=== PATIENT | female | born 1960 | race Caucasian/White ===

== ENCOUNTER 2020-04-30 17:48 | Inpatient (IN) | payer OTHER, SELFPAY ==
[2020-04-30] VITALS (15 sets, daily range): BP systolic 104–125; BP diastolic 43–66; PULSE 67–95; RESP 12–20; TEMP 36.8; O2SAT 97–100; BMI 27.6
--- NOTE | ~2020-04-30 | US_ITS ---
EXAMINATION: US venous doppler [facility] DATE: 05/01/2020 13:45 INDICATION: Left lower limb swelling. Pulmonary embolism. TECHNIQUE: Grayscale ultrasound images without and with compression and Doppler ultrasound images of the bilateral lower extremity veins were obtained. COMPARISON: None. FINDINGS: There is eccentric nonocclusive thrombus in the partially compressible right gastrocnemius vein. The visualized portions of right common femoral vein, profunda (deep) femoral vein, femoral vein, poplite al vein, posterior tibial veins and peroneal veins are patent. Patient is reportedly status post righ t greater saphenous vein ablation. Extensive occlusive appearing noncompressible thrombus throughout the visualized portions of left com mon femoral vein, profunda femoral vein, femoral vein, popliteal vein, posterior tibial veins, perone al veins, gastrocnemius vein, soleus vein, lesser saphenous vein and greater saphenous vein outflow. IMPRESSION: 1. Extensive deep venous thrombosis throughout all of the visualized veins of the left lower limb. T his was discussed with the patient's nurse. The patient is already being anticoagulated for the pulmo nary emboli. 2. Small amount of nonocclusive deep venous thrombosis within the right gastrocnemius vein. Reviewed, dictated and finalized at location [facility]. ULAR SAW FILER IMPRESSION: 1. Extensive deep venous thrombosis throughout all of the visualized veins of the left lower limb. This was discussed with the patient's nurse. The patient i s already being anticoagulated for the pulmonary emboli. 2. Small amount of nonocclusive deep venous thrombosis within the right gastroc nemius vein.
--- NOTE | ~2020-04-30 | CT_ITS ---
EXAMINATION: CTA chest PE protocol DATE: 04/30/2020 20:20 INDICATION: Shortness of breath. Recurrent deep venous thrombosis. TECHNIQUE: Computed tomography angiography (CTA) of the chest was performed with 100 mL Omnipaque-350 intravenous contrast timed to evaluate the pulmonary arteries. Coronal maximum intensity projection 3D-reconstructions were created by the technologist. Automated exposure control and iterative reconst ruction technique were employed. Exam dose: 223.03 mGy-cm total exam DLP. COMPARISON: None. FINDINGS: There is diagnostic contrast enhancement of the pulmonary arteries. Small emboli are identi fied in several right lower lobe pulmonary arteries at lower lobe anterior and posterior segments. No pulmonary Noted otherwise. No thoracic aortic aneurysm or dissection. Normal heart size. Trace pericardial fluid. No pleural effusion. No hilar or mediastinal mass lesion or lymphadenopathy. There are patchy bilateral infiltrates scattered throughout both lungs including upper lobes, middle lobe and to a greater extent lower lobes. IMPRESSION: Mild pulmonary embolism, right lower lobe, involving anterior and posterior segments Scattered patchy infiltrates throughout the upper lobes, middle lobe and particularly lower lobes Reviewed, dictated and finalized at [facility]. Reviewed, dictated and finalized at location [facility]. PROCESS DEPLOYMENT CONSULTANT IMPRESSION: Mild pulmonary embolism, right lower lobe, involving anterior and posterior segments Scattered patchy infiltrates throughout the upper lobes, middle lobe and partic ularly lower lobes
--- NOTE | ~2020-04-30 | CT_ITS ---
EXAMINATION: CT brain wo con DATE: 05/01/2020 18:20 INDICATION: New dizziness TECHNIQUE: Computed tomography (CT) of the head was performed without intravenous contrast. The mA wa s adjusted according to patient size. Iterative reconstruction technique was employed. Exam dose: 60 5.33 mGy-cm total exam DLP. COMPARISON: None FINDINGS: No intracranial mass lesion or hemorrhage or cerebrovascular accident. No midline shift or mass effect effect. There is preferential bilateral frontal cortical atrophy. There is nonspecific di minished attenuation cerebral white matter, likely due to chronic small vessel ischemic changes. Bila teral carotid siphon internal carotid artery calcifications are noted. No intracranial mass lesion or hemorrhage or cerebrovascular accident is evident. No subdural or epidural hematoma. No orbital mass lesion. Included mastoid air cells and paranasal sinuses are unremarkable. No fracture or bone destruction of the cranial vault. IMPRESSION: Cerebral atherosclerosis No acute intracranial finding Reviewed, dictated and finalized at [facility]. Reviewed, dictated and finalized at location [facility]. BUILDER AND ERECTOR
[2020-04-30 19:26] LABS: D Dimer 19.87 ug/mL (<0.48)
--- NOTE | 2020-04-30 19:30 | PC.NURSE ---
pt ambulated to bathroom and back. pt sob on return to room and pt's left leg purple in color. pt states that she has been getting sob with exertion and that after a few minutes she recovers and is feels fine again and that has been happening since she started noticing her leg swelling.
--- NOTE | 2020-04-30 19:48 | ECG_ITS ---
Measurements Intervals [place] Rate: 75 P: 0 CT: 131 QRS: 33 QRSD: 94 T: 62 QT: 366 QTc: 409 Interpretive Statements SINUS RHYTHM NORMAL ECG Electronically Signed On 05-01-2020 6:51:42 NIGHTCLUB MANAGER by Ricky Park D.O.
--- NOTE | 2020-04-30 19:50 | ED.LOWEXIN ---
HPI - Extremity Injury (Lower) General Chief Complaint: Extremity Injury, Lower Stated Complaint: Left leg Swelling, Pelvic Pain Time Seen by Provider: 04/30/20 18:06 Source: patient and family Mode of arrival: ambulatory Limitations: no limitations History of Present Illness HPI Narrative: 60-year-old female Recently had a Covid infection and reported she was just cleared by the health department Yesterday she had a sudden onset of left hip/inguinal pain like her pelvis exploded She reported to the ED at [facility] yesterday where they did a pretty extensive evaluation quite naturally centered around her pelvis and hip which was essentially completely unremarkable However today her entire left leg is swollen and painful so she came over here to get it checked out further She does have some shortness of breath but is not a lot worse than it has been with the recent Covid infection No fever No numbness or weakness Related Data Home Medications Medication Instructions Recorded Confirmed amlodipine 5 mg PO DAILY 04/30/20 04/30/20 bupropion HCl 300 mg PO DAILY 04/30/20 04/30/20 estradiol 1 mg PO DAILY 04/30/20 04/30/20 Allergies Allergy/AdvReac Type Severity Reaction Status Date / Time Sulfa (Sulfonamide Allergy Unknown Unknown Verified 04/30/20 18:04 Antibiotics) Review of Systems Review of Systems: All systems reviewed & are unremarkable except as noted in HPI and below Constitutional: Constitutional: Denies chills, Reports fatigue, Denies fever(s), Denies headache(s) and Denies weakness Eyes: Eyes: Reports no additional eye complaints and Denies change in vision ENT: Denies headache(s), Denies epistaxis, Denies nasal congestion and Denies sore throat Cardiovascular: Cardiovascular: Denies chest pain, Denies leg edema, Denies palpitations and Denies dyspnea Respiratory: Respiratory: Reports cough, Reports dyspnea and Denies wheezing Gastrointestinal: Gastrointestinal: Denies abdominal pain, Denies diarrhea, Denies nausea and Denies vomiting Genitourinary: Genitourinary: Denies hematuria, Denies urinary frequency and Denies dysuria Musculoskeletal: Musculoskeletal: Reports myalgias, Denies deformity, Reports arthralgias, Reports joint swelling, Denies muscle weakness and Denies numbness Integumentary/Breasts: Skin/Breast: Denies rash and Denies wounds Neurologic: Denies headache(s), Denies focal weakness, Denies numbness and Denies weakness Psychiatric: Psychiatric: Reports no additional psychiatric complaints Endocrine: Endocrine: Denies fatigue and Denies palpitations Hematologic/Lymphatic: Hematologic/Lymphatic: Denies easy bleeding and Denies easy bruising Allergic/Immunologic: Allergic/Immunologic: Denies wheezing PMFSH Past Medical History Medical History (Updated 04/30/20 @ 22:02 by Andrew Deutsch MD) Depression Essential (primary) hypertension Surgical History Surgical History (Updated 04/30/20 @ 21:55 by Andrew Deutsch MD) History of abdominal hysterectomy Previous section Family History Family History Father Hypertension Family history of cardiovascular disease Mother Family history of malignant neoplasm of cervix Social History Social History (Updated 04/30/20 @ 21:55 by Andrew Deutsch MD) Smoking status: Never smoker Gender identity (if verbalized by the patient): Female Exam Const: General: no acute distress, well developed, alert and awake Nutritional Appearance: well nourished Orientation/consciousness: patient oriented x3 (alert) Limitations: no limitations HENMT: Head: normocephalic and atraumatic Ears: external ears normal General nose exam: No nasal discharge present and no epistaxis Face and sinus: face symmetric Eyes: Conjunctivae: conjunctivae normal Sclera: sclerae normal EOM: EOMs intact bilaterally Neck: Neck: normal visual inspection, supple and no JVD
[2020-04-30 19:57] LABS: Basophils Percent Auto 0.4 % (0.2-1.2); Eosinophils Absolute Auto 0.3 K/mm3 (0-0.3); Eosinophils Percent Auto 3.2 % (0-4.4); Hematocrit 39.6 % (37.0-47.0); Hemoglobin 13.3 g/dL (12.0-15.0); Immature Granulocyte Absolute 0.06 K/mm3 (0.00-0.031); Immature Granulocyte Percent A 0.6 % (0-0.5); Lymphocytes Absolute Auto 1.44 K/mm3 (0.9-3.2); Lymphocytes Percent Auto 15.6 % (18.3-44.2); Mean Corpuscular HGB Conc 33.6 g/dl (32-36); Mean Corpuscular Hemoglobin 29.8 pg (26-34); Mean Corpuscular Volume 88.6 fl (80-100); Mean Platelet Volume 11.8 fl (7.4-10.4); Monocytes Absolute Auto 0.6 K/mm3 (0.1-0.6); Neutrophils Absolute Auto 6.9 K/mm3 (1.3-6.7); Neutrophils Percent Auto 74.2 % (45.5-73.1); Platelet Count Result 277 k/mm3 (150-375); Red Blood Count 4.47 M/mm3 (4.2-5.4); Red Cell Distribution Width 11.8 % (11.5-14.5); White Blood Count 9.2 K/mm3 (4.5-10.0)
[2020-04-30 20:03] LABS: Anion Gap 5 mmol/L (8-16); Blood Urea Nitrogen 23 mg/dL (7-17); Calcium 9.3 mg/dL (8.4-10.2); Carbon Dioxide 29 mmol/L (22-30); Chloride 103 mmol/L (98-107); Estimated CRCL calculation 46 ml/min; Estimated Glomerular Filt Rate 50; Glucose 127 mg/dL (65-105); Potassium 3.9 mmol/L (3.4-5.0); Sodium 137 mmol/L (137-145)
--- NOTE | 2020-04-30 20:05 | PC.NURSE ---
Called lab spoke with janusz to add on trop, bnp, bmp, and cbcd
[2020-04-30] MEDS: ENOXAPARIN 80 MG/0.8 ML SYRINGE SUB-Q (20:11)
[2020-04-30 20:15] LABS: NT Pro B Type Natriuretic Pept 243 PG/ML (5-100); Troponin I < 0.012 ng/mL (0.000-0.034)
--- NOTE | 2020-04-30 21:47 | PM.IMHP ---
H&P: HPI History of Present Illness Date/Time: 04/30/20 21:47 Chief Complaint: Left leg swelling++ Narrative: This is a pleasant 60 year old female with known history of HTN and depression who was diagnosed with COVID-19 approximately 14 days ago and presented to the hospital [facility] with a complaint of having her whole left leg swollen, painful, with difficulty ambulating. She went to [facility] yesterday as she was experiencing left groin and pelvic pain. At that time she was complaining that she felt like her pelvis exploded . She was evaluated and treated with narcotics and muscle relaxants. She was told that she had a pulled muscle and discharged home. Tonight in the ER she underwent CTA Chest for PE protocol which revealed miild pulmonary embolism, right lower lobe, involving anterior and posterior segments. The patient denies any recent fevers, chills, nausea, vomiting, or diarrhea. She continues to have mild shortness of breath with ambulation. She denies any significant coughing, hematemesis, hematuria, or rectal bleeding. She also denies any past history of clots. She has not recently had any surgeries, long distance travel, and is not known to ever have had cancer. The patient is known to be on hormone replacement therapy. She is currently saturating 99% on room air. The patient was treated with therapeutic Lovenox in the ER [facility] and we have been asked to admit her to the hospital for further care. Review of Systems Review of Systems: All systems reviewed & are unremarkable except as noted in HPI and below PMFSH Past Medical History Medical History (Updated 04/30/20 @ 22:08 by Andrew Deutsch MD) Depression Essential (primary) hypertension Surgical History Surgical History (Updated 04/30/20 @ 21:55 by Andrew Deutsch MD) History of abdominal hysterectomy Previous section Family History Family History Father Hypertension Family history of cardiovascular disease Mother Family history of malignant neoplasm of cervix Social History Social History (Updated 04/30/20 @ 21:55 by Andrew Deutsch MD) Smoking status: Never smoker Gender identity (if verbalized by the patient): Female Meds Home Medications and Allergies Home Medications Medication Instructions Recorded Confirmed Type amlodipine 5 mg PO DAILY 04/30/20 04/30/20 History bupropion HCl 300 mg PO DAILY 04/30/20 04/30/20 History estradiol 1 mg PO DAILY 04/30/20 04/30/20 History Allergies Allergy/AdvReac Type Severity Reaction Status Date / Time Sulfa (Sulfonamide Allergy Unknown Unknown Verified 04/30/20 18:04 Antibiotics) Vital Signs Vital Signs - 24 hr 04/30/20 17:58 04/30/20 18:55 04/30/20 19:00 Temperature 36.8 C Pulse Rate 95 70 80 Respiratory Rate 20 20 17 Blood Pressure 104/50 L 104/47 L Pulse Oximetry 100 100 04/30/20 19:01 04/30/20 19:16 04/30/20 19:30 Temperature Pulse Rate 77 91 75 Respiratory Rate 17 17 16 Blood Pressure 105/49 L Pulse Oximetry 100 98 04/30/20 19:45 04/30/20 20:00 04/30/20 20:10 Temperature Pulse Rate 73 77 81 Respiratory Rate 14 14 15 Blood Pressure 111/43 L Pulse Oximetry 99 99 99 Exam Const: General: cooperative, no acute distress, alert and awake Nutritional Appearance: well nourished Orientation/consciousness: patient oriented x3 HENMT: Head: normal to inspection General nose exam: Normal external nose present Face and sinus: normal facial exam Mouth: Yes Normal oral and palatal mucosa present and Yes oropharynx normal Eyes: Pupils: Equal, round and reactive pupils present EOM: EOMs intact bilaterally Neck: Neck: supple and no JVD Thyroid: thyroid normal Lymphatic: lymphadenopathy not noted Resp: Effort & Inspection: normal respiratory effort Auscultation: clear to auscultation bilaterally Cardio: Rate: regular rate Rhythm: regular rhythm Heart soun
--- NOTE | 2020-04-30 23:05 | ADMGEN ---
This patient, Raquel Mccarty, was admitted to [facility] Surg Room 302-01. Patient/family oriented to hospital policies and general routines including ID bracelet, bed and alarms, visiting hours, pain management, procedures, bathroom and other care routines, personal items, smoking policy, room service/diet, and visiting hours. Information on how to activate the Rapid Response Team has been discussed. Patient/Family are encouraged to report perceived risks to care and to ask questions if they do not understand what they are told or what they should do.
[2020-05-01] VITALS (8 sets, daily range): BP systolic 99–115; BP diastolic 43–65; PULSE 67–84; RESP 16–18; TEMP 36.2–36.4; O2SAT 97–100
[2020-05-01 06:08] LABS: Basophils Percent Auto 0.3 % (0.2-1.2); Eosinophils Absolute Auto 0.4 K/mm3 (0-0.3); Eosinophils Percent Auto 4.4 % (0-4.4); Hematocrit 34.1 % (37.0-47.0); Hemoglobin 11.7 g/dL (12.0-15.0); Immature Granulocyte Absolute 0.09 K/mm3 (0.00-0.031); Immature Granulocyte Percent A 0.9 % (0-0.5); Lymphocytes Absolute Auto 1.52 K/mm3 (0.9-3.2); Lymphocytes Percent Auto 15.5 % (18.3-44.2); Mean Corpuscular HGB Conc 34.3 g/dl (32-36); Mean Corpuscular Hemoglobin 29.4 pg (26-34); Mean Corpuscular Volume 85.7 fl (80-100); Mean Platelet Volume 11.4 fl (7.4-10.4); Monocytes Absolute Auto 0.7 K/mm3 (0.1-0.6); Monocytes Percent Auto 7.5 % (2.6-8.5); Neutrophils Percent Auto 71.4 % (45.5-73.1); Platelet Count Result 234 k/mm3 (150-375); Red Blood Count 3.98 M/mm3 (4.2-5.4); Red Cell Distribution Width 11.5 % (11.5-14.5); White Blood Count 9.8 K/mm3 (4.5-10.0)
[2020-05-01 06:47] LABS: Anion Gap 1 mmol/L (8-16); Blood Urea Nitrogen 21 mg/dL (7-17); Calcium 8.6 mg/dL (8.4-10.2); Carbon Dioxide 28 mmol/L (22-30); Chloride 106 mmol/L (98-107); Estimated CRCL calculation 56 ml/min; Estimated Glomerular Filt Rate > 60; Glucose 104 mg/dL (65-105); Potassium 3.6 mmol/L (3.4-5.0); Sodium 135 mmol/L (137-145)
[2020-05-01] MEDS: ENOXAPARIN 80 MG/0.8 ML SYRINGE SUB-Q ×2 (08:21→20:05)
[2020-05-01] MEDS: buPROPion HCL XL (24 HR) 150 MG TABCR 300 MG PO (08:23)
[2020-05-01] MEDS: FAMOTIDINE 20 MG/2 ML VIAL IV PUSH ×2 (08:23→20:06)
--- NOTE | 2020-05-01 11:47 | PM.IMPN ---
Progress Note: A&P Assessment and Plan (1) Pulmonary emboli: Qualifiers: Acute cor pulmonale presence: unspecified Chronicity: acute Pulmonary embolism type: unspecified Qualified Code(s): I26.99 - Other pulmonary embolism without acute cor pulmonale Code(s): I26.99 - Other pulmonary embolism without acute cor pulmonale Status: Acute Assessment and Plan: Mild in the right lower lobe (anterior and posterior segments). Troponin negative and BNP minimally elevated 243. Provoked in the setting of COVID-19 infection and estradiol use with recent immobility since she was not feeling well given COVID infection. She is not requiring supplemental oxygen. Dyspnea has improved. Continue therapeutic SQ lovenox and plan to transition to DOAC tomorrow if she does well overnight tonight Care coordination consult placed to check what will be covered Continue analgesics as needed Stop estradiol indefinitely. I discussed this with the patient today. Venous doppler US ordered and pending (2) Left leg swelling: Code(s): M79.89 - Other specified soft tissue disorders Status: Acute Assessment and Plan: Likely secondary to DVT. Pain is improving. Venous doppler US is ordered and pending No evidence of phlegmasia cerulea dolens. Continue to monitor for any change. Continue analgesics as needed (3) COVID-19: Code(s): U07.1 - COVID-19 Status: Acute Assessment and Plan: Symptoms started 04/13/20. The patient was diagnosed with COVID-19 04/18/31. She is likely no longer contagious. Repeat SARS-CoV-2 testing ordered per ER provider but patient was released from quarantine from the health department. She is not hypoxic. Continue supportive care (4) Essential (primary) hypertension: Code(s): I10 - Essential (primary) hypertension Status: Chronic Assessment and Plan: Blood pressures are acceptable. Most recent BP was 112/43. Continue amlodipine Continue to monitor and adjust treatment as necessary (5) Depression: Qualifiers: Depression Type: unspecified Qualified Code(s): F32.9 - Major depressive disorder, single episode, unspecified Code(s): F32.9 - Major depressive disorder, single episode, unspecified Status: Chronic Assessment and Plan: Mood is stable. Continue bupropion Subjective Date/time seen: 05/01/20 11:47 Mrs. Mccarty is a 60 y.o. female with PMH significant for recent COVID-19 diagnosed 04/15/20, depression, hypertension, and post-menopause previously on estradiol prior to admission who is seen in follow-up for suspected left lower extremity DVT and acute mild pulmonary embolism of the right lower lobe. She is doing better today. She still has LLE pain with ambulating, rated 5/10, but pain has improved overall and no longer having pain resting. She reports no numbness or tingling. She reports dyspnea with exertion but is comfortable at rest. Dyspnea is also improving. She denies hemoptysis. She denies chest pain and pleuritic pain. She denies palpitations. She has no abdominal pain. Bowels are regular. She has no other concerns. Review of Systems Review of Systems: All systems reviewed & are unremarkable except as noted in HPI and below Exam Narrative: Exam Narrative: General: Very pleasant, well-developed, and well-nourished 60 y.o. female lying semi-recumbent in bed in no acute distress. Non-toxic in appearance. HEENMT: Normocephalic and atraumatic. EOMI. Oral mucosa tacky. Neck: Supple. Cardiac: Regular rate and rhythm. S1 and S2 normal. No murmur appreciated. Lungs: Respirations are even and non-labored. Lungs have rales in the bases. No wheezes or rhonchi. Abdomen: Normoactive bowel sounds. Abdomen soft, non-distended, and non-tender. Extremities: Warm and well-perfused. Unilateral LLE with significant generalized swelling which extends up the entire extremity comp
[2020-05-02 06:00] VITALS: BP 101/55; PULSE 69; RESP 16; TEMP 36.1; O2SAT 100
[2020-05-02 06:35] LABS: Hematocrit 30.6 % (37.0-47.0); Hemoglobin 10.2 g/dL (12.0-15.0); Mean Corpuscular HGB Conc 33.3 g/dl (32-36); Mean Corpuscular Hemoglobin 28.9 pg (26-34); Mean Corpuscular Volume 86.7 fl (80-100); Mean Platelet Volume 11.7 fl (7.4-10.4); Platelet Count Result 207 k/mm3 (150-375); Red Blood Count 3.53 M/mm3 (4.2-5.4); Red Cell Distribution Width 11.6 % (11.5-14.5); White Blood Count 7.7 K/mm3 (4.5-10.0)
[2020-05-02 06:44] LABS: Anion Gap 2 mmol/L (8-16); Blood Urea Nitrogen 20 mg/dL (7-17); Calcium 8.5 mg/dL (8.4-10.2); Carbon Dioxide 30 mmol/L (22-30); Chloride 105 mmol/L (98-107); Estimated CRCL calculation 51 ml/min; Estimated Glomerular Filt Rate 56; Glucose 105 mg/dL (65-105); Magnesium 1.9 mg/dL (1.6-2.3); Potassium 3.7 mmol/L (3.4-5.0); Sodium 137 mmol/L (137-145)
[2020-05-02] MEDS: buPROPion HCL XL (24 HR) 150 MG TABCR 300 MG PO (09:17)
[2020-05-02] MEDS: ENOXAPARIN 80 MG/0.8 ML SYRINGE SUB-Q ×2 (09:17→20:40)
[2020-05-02] MEDS: FAMOTIDINE 20 MG/2 ML VIAL IV PUSH (09:18)
--- NOTE | 2020-05-02 13:10 | PM.IMPN ---
Progress Note: A&P Assessment and Plan (1) Pulmonary emboli: Qualifiers: Pulmonary embolism type: unspecified Chronicity: acute Acute cor pulmonale presence: unspecified Qualified Code(s): I26.99 - Other pulmonary embolism without acute cor pulmonale Code(s): I26.99 - Other pulmonary embolism without acute cor pulmonale Status: Acute Assessment and Plan: Mild in the right lower lobe (anterior and posterior segments). Venous doppler demonstrates extensive LLE DVT and gastrocnemius thrombus of RLE. Troponin negative and BNP minimally elevated 243. Provoked in the setting of COVID-19 infection and estradiol use with recent immobility since she was not feeling well given COVID infection. Symptoms are improving. Continue therapeutic SQ lovenox. GI consulted given report of dark stool. Monitor closely. Care coordination consult checked eliquis which was fine with the patient for discharge Continue analgesics as needed Stop estradiol indefinitely (2) Deep venous thrombosis: Code(s): I82.409 - Acute embolism and thrombosis of unspecified deep veins of unspecified lower extremity Status: Acute Assessment and Plan: LLE venous doppler US demonstrated extensive occlusive, thrombus extending from the common femoral distally. She also has nonocclusive thrombus in the right gastrocnemius vein. Swelling and pain continue to improve with anticoagulation. No evidence of phlegmasia cerulea dolens. Continue to monitor for any change. Continue analgesics as needed (3) Dark stools: Code(s): R19.5 - Other fecal abnormalities Status: Acute Assessment and Plan: She reports a large dark, runny, and black bowel movement earlier this AM. This could not be collected for guaiac testing because it was in the toilet. Hb has dropped from 13.3 04/30 to 10.2 05/02. She has no hx of PUD. Last colonoscopy was 10 years ago and unremarkable per pt. Guaiac stool test ordered GI has been consulted given need for therapeutic anticoagulation in the setting of extensive LLE DVT and PE Stop pepcid and start protonix BID Repeat Hb, trend q6 hours (4) COVID-19: Code(s): U07.1 - COVID-19 Status: Acute Assessment and Plan: Symptoms started 04/13/20. The patient was diagnosed with COVID-19 04/18/31. She is likely no longer contagious. Repeat SARS-CoV-2 testing ordered per ER provider but patient was released from quarantine from the health department. She is not hypoxic. Continue supportive care (5) Essential (primary) hypertension: Code(s): I10 - Essential (primary) hypertension Status: Chronic Assessment and Plan: Blood pressures are acceptable. Most recent BP was 101/55. Continue amlodipine Continue to monitor and adjust treatment as necessary (6) Depression: Qualifiers: Depression Type: unspecified Qualified Code(s): F32.9 - Major depressive disorder, single episode, unspecified Code(s): F32.9 - Major depressive disorder, single episode, unspecified Status: Chronic Assessment and Plan: Mood is stable. Continue bupropion Subjective Date/time seen: 05/02/20 13:10 Mrs. Mccarty is a 60 y.o. female with PMH significant for recent COVID-19 diagnosed 04/15/20, depression, hypertension, and post-menopause previously on estradiol prior to admission who is seen in follow-up for extensive left lower extremity DVT and acute mild pulmonary embolism of the right lower lobe. She had a large dark stool this AM. Unfortunately it was not collected because it was in the toilet. She had an episode of lightheadedness last night which she describes as feeling my head was full of fluff and thinks she may have been anxious. She had no associated vision change, speech change, focal weakness, or other concerning symptoms. My collaborating physician was called and recommended STAT CT brain which was unremark
[2020-05-02 13:33] VITALS: BP 102/51
[2020-05-02 13:35] VITALS: BP 110/57
[2020-05-02 13:37] VITALS: BP 97/56
[2020-05-02 14:00] VITALS: BP 102/51; PULSE 69; RESP 16; TEMP 36.8; O2SAT 100
[2020-05-02 14:22] LABS: Hematocrit 32.5 % (37.0-47.0); Hemoglobin 10.8 g/dL (12.0-15.0)
--- NOTE | 2020-05-02 15:51 | WPDGICN ---
Assessment and Plan Assessment and plan (1) Melena: Code(s): K92.1 - Melena Status: Acute Assessment and Plan: will do EGD tomorrow, new onset after started on full dose of blood thinner because new diagnosis of DVT and PE assess if ulcer or any other cause of upper gib (2) GIB (gastrointestinal bleeding): Code(s): K92.2 - Gastrointestinal hemorrhage, unspecified Status: Acute Assessment and Plan: started on ppi now and egd in am (3) Acute blood loss anemia: Code(s): D62 - Acute posthemorrhagic anemia Status: Acute Assessment and Plan: monitor hb (4) Pulmonary emboli: Qualifiers: Pulmonary embolism type: unspecified Chronicity: acute Acute cor pulmonale presence: unspecified Qualified Code(s): I26.99 - Other pulmonary embolism without acute cor pulmonale Code(s): I26.99 - Other pulmonary embolism without acute cor pulmonale Status: Acute Assessment and Plan: on blood thinner most likely associated to recent COVID-19 infection and also history of estrogen use (5) Deep venous thrombosis: Code(s): I82.409 - Acute embolism and thrombosis of unspecified deep veins of unspecified lower extremity Status: Acute (6) COVID-19: Code(s): U07.1 - COVID-19 Status: Acute Assessment and Plan: already recovered GI Consult Note Consult date/time: 05/02/20 15:51 Reason for consult: melena HPI: Raquel Mccarty is a 60 year old female with history of HTN and depression diagnosed with COVID-19 about 3 weeks ago with respiratory symptoms but treated as outpatient and cleared by health department just few days ago. She noted new onset of pain and swelling in left groin and pelvic pain at another hospital and told that she pulled muscle and discharged home. She came to our ER, had a CTA Chest for PE protocol which revealed mild pulmonary embolism, right lower lobe, involving anterior and posterior segments and also doppler showed extensive LLE DVT and gastrocnemius thrombus of RLE, started on lovenox. No previous history of clots. The patient is known to be on hormone replacement therapy. She is currently saturating 99% on room air. I was called because she just had a large dark tarry stool, hb on admission 13 and repeat 10.8, she denies previous gib, abdominal pain, nausea. She had a colonoscopy about 10 years ago. Review of Systems Constitutional: Constitutional: Denies headache(s) and Denies weakness Eyes: Eyes: Denies blurry vision ENT: Reports Normal hearing present, Denies headache(s) and Denies neck pain Cardiovascular: Cardiovascular: Denies chest pain and Denies dyspnea Respiratory: Respiratory: Denies dyspnea Gastrointestinal: Gastrointestinal: Reports no additional gastrointestinal complaints Genitourinary: Genitourinary: Denies dysuria Musculoskeletal: Comments: leg pain Integumentary/Breasts: Skin/Breast: Denies dry skin Neurologic: Reports Normal hearing present, Denies headache(s) and Denies weakness Psychiatric: Psychiatric: Denies anxiety Endocrine: Endocrine: Denies change in body appearance Hematologic/Lymphatic: Hematologic/Lymphatic: Denies easy bleeding Allergic/Immunologic: Allergic/Immunologic: Denies urticaria PMFSH Past Medical History Medical History (Updated 05/02/20 @ 16:18 by Lamont Shah MD) Acute blood loss anemia Depression Essential (primary) hypertension GIB (gastrointestinal bleeding) Melena Surgical History Surgical History (Updated 04/30/20 @ 21:55 by Andrew Deutsch MD) History of abdominal hysterectomy Previous section Family History Family History Father Hypertension Family history of cardiovascular disease Mother Family history of malignant neoplasm of cervix Social History Social History (Updated 04/30/20 @ 21:55 by Andrew Deutsch MD) Smoking status: Never smoker
[2020-05-02] MEDS: PANTOPRAZOLE SODIUM IV 40 MG VIAL IV PUSH (20:40)
[2020-05-02 22:00] VITALS: BP 109/41; PULSE 84; RESP 16; TEMP 36.3; O2SAT 100
[2020-05-03] VITALS (8 sets, daily range): BP systolic 102–135; BP diastolic 46–97; PULSE 71–100; RESP 16–22; TEMP 36–36.9; O2SAT 97–100
--- NOTE | 2020-05-03 | ECHO_ITS ---
Patient Info Name: Raquel Mccarty Age: 60 years : 1960 Gender: Female Ht: 67 in Wt: 175 lbs BSA: 1.95 m2 HR: 75 bpm BP: 119 / 46 mmHg Heart Rhythm: Sinus Rhythm Technical Quality: Good Exam Date: 05/03/2020 2:40 PM Exam Location: [facility] Patient Status: Inpatient Admit Date: 05/03/2020 Staff Ordering Physician: Mira Edouard PA-C Counterintelligence Specialist: Scot Walter RDCS Attending Provider: Mira Edouard PA-C Referring Physician: Javan COPE; Exam Type: CA echo doppler color flow Study Info Indications I26.99 - Other pulmonary embolism without acute cor pulmonale Complete two-dimensional, color flow and Doppler transthoracic echocardiogram is performed. Strain analysis performed. History/Risk Factors Acute pulmonary embolism w/ extensive DVT; GIB, HTN, DM, edema. Summary 1. Complete two-dimensional, color flow and Doppler transthoracic echocardiogram is performed. 2. Left ventricular systolic function is normal, estimated at 65-70%. 3. There is mildly increased left ventricular wall thickness. 4. The left ventricular diastolic function is grade II diastolic dysfunction. 5. Global longitudinal strain is normal at -18 %. 6. There is no aortic valve stenosis. 7. There is mild aortic valve regurgitation. 8. There is mild mitral valve regurgitation. 9. There is trace tricuspid valve regurgitation. 10. No pulmonary hypertension, estimated pulmonary arterial systolic pressure is 24 mmHg. 11. There is small pericardial effusion. Left Ventricle Left ventricular chamber dimension is normal. Left ventricular systolic function is normal, estimated at 65-70%. There is mildly increased left ventricular wall thickness. The left ventricular diastolic function is grade II diastolic dysfunction. Global longitudinal strain is normal at -18 %. Right Ventricle Right ventricular chamber dimension is normal. Right ventricular systolic function is normal. Left Atria Left atrial chamber dimension is normal. Right Atria Right atrial chamber dimension is normal. Aortic Valve The aortic valve is trileaflet. There is no aortic valve stenosis. There is mild aortic valve regurgitation. Pulmonic Valve The pulmonic valve is not well visualized. There is mild pulmonic regurgitation. Mitral Valve The mitral valve has normal leaflets. There is mild mitral valve regurgitation. Tricuspid Valve The tricuspid valve leaflets are normal. There is trace tricuspid valve regurgitation. No pulmonary hypertension, estimated pulmonary arterial systolic pressure is 24 mmHg. Pericardium/Pleural The pericardium appears normal. There is small pericardial effusion. Inferior Vena Cava Normal inferior vena cava with >50% collapse upon inspiration consistent with normal right atrial pressure, 5 mmHg. Aorta The aortic root size at the sinus of Valsalva is normal. There is mild aortic atherosclerosis. Left Ventricular Outflow Tract Name Value Normal LVOT 2D LVOT Diameter 1.9 cm LVOT Doppler LVOT Peak Gradient 5 mmHg LVOT Mean Gradient
[2020-05-03 05:50] LABS: Basophils Percent Auto 0.6 % (0.2-1.2); Eosinophils Absolute Auto 0.3 K/mm3 (0-0.3); Eosinophils Percent Auto 4.5 % (0-4.4); Hematocrit 28.7 % (37.0-47.0); Hemoglobin 9.6 g/dL (12.0-15.0); Immature Granulocyte Absolute 0.05 K/mm3 (0.00-0.031); Immature Granulocyte Percent A 0.7 % (0-0.5); Lymphocytes Absolute Auto 1.51 K/mm3 (0.9-3.2); Lymphocytes Percent Auto 21.1 % (18.3-44.2); Mean Corpuscular HGB Conc 33.4 g/dl (32-36); Mean Corpuscular Hemoglobin 29.8 pg (26-34); Mean Corpuscular Volume 89.1 fl (80-100); Mean Platelet Volume 11.9 fl (7.4-10.4); Monocytes Absolute Auto 0.8 K/mm3 (0.1-0.6); Monocytes Percent Auto 10.8 % (2.6-8.5); Neutrophils Absolute Auto 4.5 K/mm3 (1.3-6.7); Neutrophils Percent Auto 62.3 % (45.5-73.1); Platelet Count Result 207 k/mm3 (150-375); Red Blood Count 3.22 M/mm3 (4.2-5.4); Red Cell Distribution Width 11.9 % (11.5-14.5); White Blood Count 7.1 K/mm3 (4.5-10.0)
[2020-05-03 06:07] LABS: Alanine Aminotransferase 46 U/L (4-35); Alkaline Phosphatase 103 U/L (38-126); Anion Gap 3 mmol/L (8-16); Aspartate Amino Transferase 53 U/L (14-36); Bilirubin,Total 0.3 mg/dL (0.2-1.3); Blood Urea Nitrogen 26 mg/dL (7-17); Calcium 8.3 mg/dL (8.4-10.2); Carbon Dioxide 28 mmol/L (22-30); Chloride 107 mmol/L (98-107); Estimated CRCL calculation 56 ml/min; Estimated Glomerular Filt Rate > 60; Glucose 110 mg/dL (65-105); Magnesium 1.9 mg/dL (1.6-2.3); Potassium 4.1 mmol/L (3.4-5.0); Sodium 138 mmol/L (137-145)
[2020-05-03] MEDS: ENOXAPARIN 80 MG/0.8 ML SYRINGE SUB-Q (09:12)
[2020-05-03] MEDS: buPROPion HCL XL (24 HR) 150 MG TABCR 300 MG PO (09:13)
[2020-05-03] MEDS: PANTOPRAZOLE SODIUM IV 40 MG VIAL IV PUSH ×2 (09:13→20:24)
[2020-05-03] MEDS: LACTATED RINGERS 1,000 ML 150 ML IV CONT (12:08)
--- NOTE | 2020-05-03 12:11 | WPDANESEPPF ---
Anes - Initial Pre Proc Eval Procedure: Operation Date: 05/03/20 14:00 Proposed Procedures p Esophagogastroduodenoscopy - Lamont Shah MD Date/Time: 05/03/20 12:11 Surgeon: Mira Edouard PA-C Pre Op Diagnosis: pulmonary embolism, dvt Patient Data Age: 60 Gender: F Height: 5 ft 7 in Weight: 80 kg Last Vital Signs Temp 97.4 F L 05/03/20 12:04 Pulse 74 05/03/20 12:04 Resp 20 05/03/20 12:04 BP 119/46 L 05/03/20 12:04 Pulse Ox 100 05/03/20 12:04 Allergies Allergy/AdvReac Type Severity Reaction Status Date / Time Sulfa (Sulfonamide Allergy Unknown Hives Verified 05/03/20 12:03 Antibiotics) Home Medications Medication Instructions Recorded Confirmed Type amlodipine 5 mg PO DAILY 04/30/20 04/30/20 History estradiol 1 mg PO DAILY 04/30/20 04/30/20 History bupropion HCl 300 mg PO QAM 05/01/20 05/01/20 History Laboratory Tests 05/02/20 05/03/20 05/03/20 13:59 05:20 05:20 WBC 7.1 K/mm3 K/mm3 (4.5-10.0) RBC 3.22 M/mm3 L M/mm3 (4.2-5.4) Hgb 10.8 g/dL L g/dL 9.6 g/dL L g/dL (12.0-15.0) (12.0-15.0) Hct 32.5 % L % 28.7 % L % (37.0-47.0) (37.0-47.0) MCV 89.1 fl fl (80-100) MCH 29.8 pg pg (26-34) MCHC 33.4 g/dl g/dl (32-36) RDW 11.9 % % (11.5-14.5) Plt Count 207 k/mm3 k/mm3 (150-375) MPV 11.9 fl H fl (7.4-10.4) Immature Gran % (Auto) 0.7 % H % (0-0.5) Neut % (Auto) 62.3 % % (45.5-73.1) Lymph % (Auto) 21.1 % % (18.3-44.2) [place] % (Auto) 10.8 % H % (2.6-8.5) Eos % (Auto) 4.5 % H % (0-4.4) Baso % (Auto) 0.6 % % (0.2-1.2) Lymph # (Auto) 1.51 K/mm3 K/mm3 (0.9-3.2) [place] # (Auto) 0.8 K/mm3 H K/mm3 (0.1-0.6) Eos # (Auto) 0.3 K/mm3 K/mm3 (0-0.3) Baso # (Auto) 0.0 K/mm3 K/mm3 (0.0-0.1) Abs Immat Gran (auto) 0.05 K/mm3 H K/mm3 (0.00-0.031) Absolute Neuts (auto) 4.5 K/mm3 K/mm3 (1.3-6.7) Absolute Nucleated RBC 0.0 K/mm3 K/mm3 (0.0-0.012) Nucleated RBC % 0.0 % % (0.0-0.2) Sodium 138 mmol/L mmol/L (137-145) Potassium 4.1 mmol/L mmol/L (3.4-5.0) Chloride 107 mmol/L mmol/L (98-107) Carbon Dioxide 28 mmol/L mmol/L (22-30) Anion Gap 3 mmol/L L mmol/L (8-16) BUN 26 mg/dL H mg/dL (7-17) Creatinine 0.90 mg/dL mg/dL (0.7-1.0) Estim Creat Clear Calc 56 ml/min ml/min Estimated GFR > 60 (59 - ) Glucose 110 mg/dL H mg/dL (65-105) Calcium 8.3 mg/dL L mg/dL (8.4-10.2) Magnesium 1.9 mg/dL mg/dL (1.6-2.3) Total Bilirubin 0.3 mg/dL mg/dL (0.2-1.3) AST 53 U/L H U/L (14-36) ALT 46 U/L H U/L (4-35) Alkaline Phosphatase 103 U/L U/L (38-126) Total Protein 6.0 g/dL L g/dL (6.3-8.2) Albumin 3.0 g/dL L g/dL (3.5-5.1) Patient hx anesthesia problems: none Family hx anesthesia problems: none PMFSH Past Medical History Medical History (Updated 05/02/20 @ 16:18 by Lamont Shah MD) Acute blood loss anemia Depression Essential (primary) hypertension GIB (gastrointestinal bleeding) Melena Surgical History Surgical History (Updated 04/30/20 @ 21:55 by Andrew Deutsch MD) History of abdominal hysterectomy Previous section Family History Family History Father Hypertension Family history of cardiovascular disease Mother Family history of malignant neoplasm of cervix Social History Social History (Updated 04/30/20 @ 21:55 by Andrew Deutsch MD) Smoking status: Never smoker Alcohol intake: current Drinks per week: 1 Substance use: never Gender identity (if verbalized by the patient): Female Spiritual care concerns: No
--- NOTE | 2020-05-03 13:08 | PM.IMPN ---
Progress Note: A&P Assessment and Plan (1) Pulmonary emboli: Qualifiers: Pulmonary embolism type: unspecified Chronicity: acute Acute cor pulmonale presence: unspecified Qualified Code(s): I26.99 - Other pulmonary embolism without acute cor pulmonale Code(s): I26.99 - Other pulmonary embolism without acute cor pulmonale Status: Acute Assessment and Plan: Mild in the right lower lobe (anterior and posterior segments). Venous doppler demonstrates extensive LLE DVT and gastrocnemius thrombus of RLE. Troponin negative and BNP minimally elevated 243. Provoked in the setting of COVID-19 infection and estradiol use with recent immobility since she was not feeling well given COVID infection. Symptoms are improving. Will hold Lovenox dose for this evening until evaluation by general surgery for possible IVC filter. Poor candidate for long-term systemic anticoagulation in light of GI bleed. Ridley check via care coordination completed for Eliquis on discharge, dependent on hospital course. Continue analgesics as needed Stop estradiol indefinitely. Obtain Echo in light of acute PE (2) Deep venous thrombosis: Code(s): I82.409 - Acute embolism and thrombosis of unspecified deep veins of unspecified lower extremity Status: Acute Assessment and Plan: LLE venous doppler US demonstrated extensive occlusive, thrombus extending from the common femoral distally. She also has nonocclusive thrombus in the right gastrocnemius vein. No evidence of phlegmasia cerulea dolens. Swelling and pain continue to improve with anticoagulation. Monitor clinically for any change. Continue analgesics as needed Warm compresses as needed for pain (3) GIB (gastrointestinal bleeding): Code(s): K92.2 - Gastrointestinal hemorrhage, unspecified Status: Acute Assessment and Plan: She had a black liquid stool on 05/02/20. underwent EGD today with Dr. Joseph which showed bleeding gastric ulcer which was actively bleeding. Bleeding was controlled endoscopically with epinephrine and clips for hemostasis. Per Dr. Joseph, this ulcer is at high risk for rebleeding especially if continuing with anticoagulation. Appreciate GI consultation continue Protonix b.i.d. Avoid NSAIDs and aspirin Will place consult to General surgery for evaluation of IVC filter as she is not a good candidate for continued anticoagulation given risk of bleeding Monitor clinically for signs of bleeding Recommended per GI to repeat EGD in 3-4 months to assess for healing (4) Acute blood loss anemia: Code(s): D62 - Acute posthemorrhagic anemia Status: Acute Assessment and Plan: Hgb stable upon presentation with slow decline and is low at 9.6 today secondary to active bleeding from gastric ulcer. Vital signs are stable. will monitor H&H q6 today (5) COVID-19: Code(s): U07.1 - COVID-19 Status: Acute Assessment and Plan: Symptoms started 04/13/20. The patient was diagnosed with COVID-19 04/18/20. given duration of symptoms, she no longer requires isolation precautions and was intact released from quarantine from the health department. She is maintaining adequate oxygen saturations on room air. (6) Essential (primary) hypertension: Code(s): I10 - Essential (primary) hypertension Status: Chronic Assessment and Plan: Blood pressures are acceptable. Most recent BP was 116/51. Continue amlodipine Continue to monitor and adjust treatment as necessary (7) Depression: Qualifiers: Depression Type: unspecified Qualified Code(s): F32.9 - Major depressive disorder, single episode, unspecified Code(s): F32.9 - Major depressive disorder, single episode, unspecified Status: Chronic Assessment and Plan: Mood is stable. Continue bupropion Subjective Date/time seen: 05/03/20 13:08 Interval history: Date
--- NOTE | 2020-05-03 13:19 | SUR.OPER ---
Resolution clip x3 Lot [id number] Exp Date: 2023-02-11
[2020-05-03] MEDS: EPINEPHrine INJ 1 MG/10 ML SYRINGE IV PUSH (13:34)
[2020-05-03 16:10] LABS: Hematocrit 29.3 % (37.0-47.0); Hemoglobin 9.7 g/dL (12.0-15.0)
[2020-05-04 06:00] VITALS: BP 100/42; PULSE 81; RESP 20; TEMP 36.4; O2SAT 95
[2020-05-04 06:18] LABS: Hemoglobin 8.8 g/dL (12.0-15.0); Mean Corpuscular HGB Conc 32.6 g/dl (32-36); Mean Corpuscular Hemoglobin 29.3 pg (26-34); Mean Platelet Volume 11.9 fl (7.4-10.4); Platelet Count Result 212 k/mm3 (150-375); Red Cell Distribution Width 12.2 % (11.5-14.5); White Blood Count 7.7 K/mm3 (4.5-10.0)
[2020-05-04 06:35] LABS: Anion Gap 4 mmol/L (8-16); Blood Urea Nitrogen 18 mg/dL (7-17); Calcium 8.4 mg/dL (8.4-10.2); Carbon Dioxide 30 mmol/L (22-30); Chloride 106 mmol/L (98-107); Estimated CRCL calculation 51 ml/min; Estimated Glomerular Filt Rate 56; Glucose 97 mg/dL (65-105); Potassium 4.3 mmol/L (3.4-5.0); Sodium 140 mmol/L (137-145)
--- NOTE | 2020-05-04 07:28 | WPDANESPN ---
Anes - Prog Note Post-Op Date/Time: 05/04/20 07:28 Cardiovascular status: normal Respiratory status: normal Airway patency: baseline Mental status: baseline Post-Op hydration status: normal Vital Signs: Last Vital Signs Temp 36.4 C 05/04/20 06:00 Pulse 81 05/04/20 06:00 Resp 20 05/04/20 06:00 BP 100/42 L 05/04/20 06:00 Pulse Ox 95 05/04/20 06:00 Pain Score (VAS): 2 I/O: Intake & Output 05/03/20 05/03/20 05/04/20 15:59 23:59 07:59 Intake Total 100 740 300 Output Total 450 Balance 100 290 300 Laboratory Tests 05/04/20 05:41 05/04/20 05:41 05/03/20 05/04/20 05/04/20 15:46 05:41 05:41 WBC 7.7 RBC 3.00 L Hgb 9.7 L 8.8 L Hct 29.3 L 27.0 L MCV 90.0 MCH 29.3 MCHC 32.6 RDW 12.2 Plt Count 212 MPV 11.9 H Sodium 140 Potassium 4.3 Chloride 106 Carbon Dioxide 30 Anion Gap 4 L BUN 18 H Creatinine 1.00 Estim Creat Clear Calc 51 Estimated GFR 56 L Glucose 97 Calcium 8.4 Post-procedural complaints: none Patient Feedback: Patient satisfied with anesthetic care.
--- NOTE | 2020-05-04 09:31 | PM.CNGS ---
Assessment and Plan Assessment and plan (1) Pulmonary emboli: Qualifiers: Pulmonary embolism type: unspecified Chronicity: acute Acute cor pulmonale presence: unspecified Qualified Code(s): I26.99 - Other pulmonary embolism without acute cor pulmonale Code(s): I26.99 - Other pulmonary embolism without acute cor pulmonale Status: Acute Assessment and Plan: I have reviewed ultrasound, CTA chest, and EGD Findings. I also discussed Her care with the hospitalist. She was on anticoagulation but narrow has evidence of a GI bleed which makes this a contraindication to continued anticoagulation. Her extensive DVT on the left side puts her at risk for further pulmonary emboli. I have recommended IVC filter placement. I discussed with her in detail the risks of the procedure as well as other risks if the procedure is not done. IVC filters do have occasional risk of migration, perforation, or thrombosis of the IVC. Since she may not have a long-term contraindication to anticoagulation, I discussed placement of a temporary IVC filter. She would have to see a vascular surgeon to have this removed if she is to anticoagulation within the next 4-6 weeks. (2) Deep venous thrombosis: Qualifiers: DVT location: lower extremity Affected thrombotic vein of extremity: femoral Chronicity: acute Laterality: left Qualified Code(s): I82.412 - Acute embolism and thrombosis of left femoral vein Code(s): I82.409 - Acute embolism and thrombosis of unspecified deep veins of unspecified lower extremity Status: Acute (3) GIB (gastrointestinal bleeding): Code(s): K92.2 - Gastrointestinal hemorrhage, unspecified Status: Acute (4) COVID-19: Code(s): U07.1 - COVID-19 Status: Acute Additional Plan Thank you very much for allowing us to aid in the care of this patient. History of Present Illness Consult details Consult date: 05/04/20 Requesting physician: Mira Edouard PA-C Narrative: This is a 60-year-old woman who I am asked to see for possible IVC filter placement. She has a recent finding pulmonary embolus and extensive the left lower extremity. She was started on anticoagulation subsequently developed melena and was found to have a bleeding gastric ulcer. Anticoagulation had to be stopped due to this. She also has a recent finding of COVID about 2 weeks ago. All of these events have been related to her recent illness with COVID. She has no prior history of peptic ulcer disease or GI bleeds. She also has no prior history of blood clots. Review of Systems Review of Systems: All systems reviewed & are unremarkable except as noted in HPI and below Eyes: Eyes: Denies change in vision ENT: Denies hearing loss, Denies neck pain and Denies sore throat Cardiovascular: Cardiovascular: Denies chest pain and Denies dyspnea Respiratory: Respiratory: Reports as per HPI Gastrointestinal: Gastrointestinal: Reports as per HPI Genitourinary: Genitourinary: Denies hematuria and Denies dysuria Musculoskeletal: Musculoskeletal: Denies arthralgias, Denies joint swelling and Denies neck pain Allergic/Immunologic: Allergic/Immunologic: Denies wheezing PMFSH Past Medical History Medical History Acute blood loss anemia Depression Essential (primary) hypertension GIB (gastrointestinal bleeding) Melena Surgical History Surgical History History of abdominal hysterectomy Previous section Family History Family History Father Hypertension Family history of cardiovascular disease Mother Family history of malignant neoplasm of cervix Social History Social History Smoking status: Never smoker Alcohol intake: current Drinks per week:
--- NOTE | 2020-05-04 09:45 | PM.PROC ---
Procedure Note - Detailed Date of procedure: 05/04/20 Pre-op diagnosis: pulmonary embolism, DVT, GI Bleed Post-op diagnosis: same Procedure performed: 1. IVC Filter Placement using u/s and fluoro guidance 2. Inferior Vena Cavogram Description of procedure: Patient was brought back to chemical laboratory technician suite. She was placed supine chemical laboratory technician table. Time-out was done to confirm patient procedure. Her right groin was prepped and draped in sterile fashion using chlorhexidine prep. SonoSite ultrasound was used to identify the right femoral vein. This was visualized as a compressible vessel just medial to the right femoral artery. 1% lidocaine was infiltrated directly over this area. An 18 gauge introducer needle was then advanced under ultrasound guidance directly into the lumen of the right femoral vein. Dark nonpulsatile blood was aspirated. A 0.035 in guidewire was advanced through the needle under fluoroscopic guidance. The guidewire advanced smoothly and was visualized advancing up into the inferior vena cava. The needle was withdrawn leaving the guidewire in place. A small liz incision was made at the insertion site using an 11 blade scalpel. The 8 Setswana dilator and sheath were then advanced over the guidewire under fluoroscopic guidance. The sheath was advanced all the way to the L4 vertebral body. The dilator and guidewire were removed. A venogram was then obtained with 50/50 Omnipaque contrast. The renal veins were not opacified. I then reinserted the guidewire and advanced the guidewire up the sheath and then also advanced the dilator over the guidewire. The dilator and sheath were then advanced up to the L3 vertebral body, and then once the sheath was at the upper portion of the L3 vertebral body, the dilator and guidewire were removed. The IVC filter was then inserted into the end of the sheath and then the plunger was used to carefully advanced the filter up the length of the sheath. Once the filter was visualized under fluoroscopy at the tip of the sheath, the sheath was slowly withdrawn to allow the filter to deploy. Once the filter was completely expanded, the sheath was removed and pressure was applied at the insertion site. One final fluoroscopic image was obtained visualizing the IVC filter and proper orientation overlying the L3 vertebral body. After holding pressure for 5 minutes, there is no further blood loss and a sterile dressing was applied. Implants: Schleicher Retrievable IVC Filter Anesthesia: local Surgeon: Huy Reyes DO Estimated blood loss (mL): 2 Complications: No immediate complications Condition: stable Disposition: ICU Findings: IVC accessed through right femoral vein approach under u/s and fluoroscopic guidance. IVC venogram performed but renal opacification not visualized. IVC filter deployed at level of L3 Vertebral body.
[2020-05-04] MEDS: buPROPion HCL XL (24 HR) 150 MG TABCR 300 MG PO (10:15)
[2020-05-04] MEDS: PANTOPRAZOLE SODIUM IV 40 MG VIAL IV PUSH (10:16)
--- NOTE | 2020-05-04 11:26 | PC.NURSE ---
0850 pt to computer laboratory technician for placement of filter, 0930 report from computer laboratory technician nurse ,procedure went well. 0952 pt returned to room 302, a/ox3 no distress, pt to lay flat for 2 hours has bandage to right groin, D/I
--- NOTE | 2020-05-04 13:55 | PM.DS ---
DS: Admitting Diagnosis Admitting Diagnosis Admitting Diagnosis: DVT DS: Discharge Diagnosis Discharge Diagnosis (1) Pulmonary emboli: Qualifiers: Pulmonary embolism type: unspecified Chronicity: acute Acute cor pulmonale presence: unspecified Qualified Code(s): I26.99 - Other pulmonary embolism without acute cor pulmonale Code(s): I26.99 - Other pulmonary embolism without acute cor pulmonale Status: Acute Assessment and Plan: Mild in the right lower lobe (anterior and posterior segments). Venous doppler demonstrates extensive LLE DVT and gastrocnemius thrombus of RLE. Troponin negative and BNP minimally elevated 243. Provoked in the setting of COVID-19 infection and estradiol use with recent immobility since she was not feeling well given COVID infection. Echo evaluated with no acute findings. She was started on therapeutic Lovenox on 04/30/2020, however developed GI bleeding, therefore anticoagulation was discontinued. Per GI, anticoagulation can be considered in 10-14 days if no further bleeding. Estradiol was discontinued. (2) Deep venous thrombosis: Qualifiers: DVT location: lower extremity Affected thrombotic vein of extremity: femoral Chronicity: acute Laterality: left Qualified Code(s): I82.412 - Acute embolism and thrombosis of left femoral vein Code(s): I82.409 - Acute embolism and thrombosis of unspecified deep veins of unspecified lower extremity Status: Acute Assessment and Plan: LLE venous doppler US demonstrated extensive occlusive, thrombus extending from the common femoral distally. She also has nonocclusive thrombus in the right gastrocnemius vein. No evidence of phlegmasia cerulea dolens. She had swelling of the left thigh with no discoloration. As above, she was started on therapeutic Lovenox which was discontinued based on GI bleeding. Given her high risk for continued bleeding and therefore high risk for continue anticoagulation, she had an IVC filter placed on 05/04/2020. (3) GIB (gastrointestinal bleeding): Code(s): K92.2 - Gastrointestinal hemorrhage, unspecified Status: Acute Assessment and Plan: She had a black liquid stool on 05/02/20. Underwent EGD on 05/03/[address] Joseph which showed bleeding gastric ulcer which was actively bleeding. Bleeding was controlled endoscopically with epinephrine and clips for hemostasis. Per Dr. Joseph, this ulcer is at high risk for rebleeding. Due to this, anticoagulation was discontinued and she required IVC filter. She will continue high dose protonix bid. Avoid NSAIDs and aspirin. Discussed at length monitoring for signs/symptoms of bleeding. Per GI, anticoagulation can be considered in 10-14 days, and she will need to follow up with her primary. Recommended per GI to repeat EGD in 3-4 months to assess for healing (4) Acute blood loss anemia: Code(s): D62 - Acute posthemorrhagic anemia Status: Acute Assessment and Plan: Hgb stable upon presentation with slow decline secondary to acute GI bleed. Vital signs remained stable. Bleeding was controlled and H&H improved. Repeat H&H as an outpatient in 5 days. (5) COVID-19: Code(s): U07.1 - COVID-19 Status: Acute Assessment and Plan: Symptoms started 04/13/20. The patient was diagnosed with COVID-19 04/18/20. given duration of symptoms, she no longer required isolation precautions and was released from quarantine from the health department. She is maintained adequate oxygen saturations on room air during stay. (6) Essential (primary) hypertension: Code(s): I10 - Essential (primary) hypertension Status: Chronic Assessment and Plan: Blood pressures Reviewed and were well controlled her amlodipine was held as her blood pressures were in normal range without this medication. Recommended monitoring her BP at home as an outpatient and follow up with PCP to reevaluate need for
[2020-05-04 14:00] VITALS: BP 103/42; PULSE 79; RESP 16; TEMP 36.8; O2SAT 100
[2020-05-04 14:52] LABS: Hematocrit 27.5 % (37.0-47.0); Hemoglobin 9.1 g/dL (12.0-15.0)
--- NOTE | 2020-05-04 16:10 | WPDGIPROGNO ---
Progress Note: A&P Assessment and Plan (1) Gastric ulcer: Code(s): K25.9 - Gastric ulcer, unspecified as acute or chronic, without hemorrhage or perforation Status: Acute Assessment and Plan: with active bleeding, she will need detention ppi twice daily also monitor for signs of bleeding holding blood thinner and instead will get ivc filter today egd in 3 months to assess healing of ulcer (2) GIB (gastrointestinal bleeding): Code(s): K92.2 - Gastrointestinal hemorrhage, unspecified Status: Acute (3) Acute blood loss anemia: Code(s): D62 - Acute posthemorrhagic anemia Status: Acute Assessment and Plan: monitor cbc (4) Melena: Code(s): K92.1 - Melena Status: Acute (5) Deep venous thrombosis: Qualifiers: DVT location: lower extremity Affected thrombotic vein of extremity: femoral Chronicity: acute Laterality: left Qualified Code(s): I82.412 - Acute embolism and thrombosis of left femoral vein Code(s): I82.409 - Acute embolism and thrombosis of unspecified deep veins of unspecified lower extremity Status: Acute Assessment and Plan: will get ivc filter today discontinue estrogens may start blood thinners in another 10-14 days if still medically indicated Subjective Date/time seen: 05/04/20 07:20 Interval history: she denies any more GIB, EGD yesterday with active bleeding, spurting vessel from gastric ulcer and treated endoscopically. She will go to get IVC filter today Review of Systems Review of Systems: All systems reviewed & are unremarkable except as noted in HPI and below Exam Const: General: comfortable and no acute distress HENMT: General nose exam: Normal nares present Eyes: General: appearance normal, both eyes and all related structures Neck: Neck: supple Resp: Auscultation: clear to auscultation bilaterally Cardio: Rate: regular rate GI: Inspection: non-distended GI Palp: Yes Soft to palpation, No Firmness to palpation present (GI) and No Guarding due to palpation present (GI) Skin: General skin exam: normal color Neuro: Speech: normal speech Extrem: Other: left leg is swollen Psych: Affect: normal affect Objective Data Vital Signs Vital Signs: Vital Signs - 24 hr 05/03/20 22:00 05/04/20 06:00 05/04/20 14:00 Temperature 98.5 F 97.6 F 98.2 F Pulse Rate 76 81 79 Respiratory Rate 20 20 16 Blood Pressure 102/55 L 100/42 L 103/42 L Pulse Oximetry 97 95 100 Intake/Output Intake/Output: Intake & Output 05/01/20 05/02/20 05/03/20 05/04/20 23:59 23:59 23:59 23:59 Intake Total 2160 2300 1190 420 Output Total 800 450 Balance 1360 2300 740 420 Meds/Results Medications: Active Medications Generic Name Dose Route Start Last Admin Trade Name Freq PRN Reason Stop Dose Admin Acetaminophen 650 mg 04/30/20 22:00 Acetaminophen 325 Mg Tablet PO Q4H PRN Mild Pain (1-3) or Fever Hydrocodone Bitart/Acetaminophen 1 tab 04/30/20 22:00 Hydrocodone/Acetaminophen (*Crx) 5-325 Mg Tablet PO Q4H PRN Moderate Pain (4-6) Amlodipine Besylate 5 mg 05/01/20 09:00 05/03/20 16:11 Amlodipine Besylate 5 Mg Tablet PO Not Given DAILY CHICO Bupropion HCl 300 mg 05/01/20 09:00 05/04/20 10:15 Bupropion Hcl Xl (24 Hr) 150 Mg Tabcr PO 300 mg DAILY CHICO Administration Ondansetron HCl 4 mg 04/30/20 21:58 Ondansetron Inj 4 Mg/2 Ml Vial IV PUSH Q4H PRN Nausea Pantoprazole Sodium 40 mg 05/02/20 21:00 05/04/20 10:16 Pantoprazole Sodium Iv 40 Mg Vial IV PUSH 40 mg Q12HR CHICO Administration Radiology Results: ITS Impressions Chest CTA 04/30/20 20:24 IMPRESSION: Mild pulmonary embolism, right lower lobe, involving anterior and posterior segments Scattered patchy infiltrates throughout the upper lobes, middle lobe and particularly lower lobes Venous Doppler Study 05/01/20 13:48 IMPRESSION: 1. Extensive deep anibal
--- NOTE | 2020-05-04 16:33 | PC.NURSE ---
1015 pt lying flat dressing to right groin D/I, denies any pain.
--- NOTE | 2020-05-04 16:34 | PC.NURSE ---
1130 pt contiues to remain flat , dressing to right groin D?I , no bleeding noted.
--- NOTE | 2020-05-04 16:35 | PC.NURSE ---
1250 pt allowed to raise head of bed no distress dresssing to right groin D/I,
--- NOTE | 2020-05-04 16:36 | PC.NURSE ---
1600 discharge instruction given to pt, dressing to right groin D/I no bleeding noted.
== END 2020-05-04 16:45 | disposition home or self-care (01) | DRG 175 ==
LOC: ANHED 22:04 → ANH3MEDSUR 22:22
PROVIDERS: Internal Medicine Gastroenterology; Physician Assistant; Surgery; Admitting Provider Family Medicine; Emergency Provider Emergency Medicine; PCP Internal Medicine; Visit Provider Family Medicine
PROC: 0DJ08ZZ Inspection of Upper Intestinal Tract, Via Natural or Artificial Opening Endoscopic (ICD-10-PCS; CPT 43235; principal; 2020-05-03 14:00)
PROC: 06H03DZ Insertion of Intraluminal Device into Inferior Vena Cava, Percutaneous Approach (ICD-10-PCS; principal; 2020-05-04 09:00)
DX: I26.99 Other pulmonary embolism without acute cor pulmonale (principal); K25.4 Chronic or unspecified gastric ulcer with hemorrhage; D62 Acute posthemorrhagic anemia; I82.412 Acute embolism and thrombosis of left femoral vein; K29.70 Gastritis, unspecified, without bleeding; I82.462 Acute embolism and thrombosis of left calf muscular vein; B94.8 Sequelae of other specified infectious and parasitic diseases; T38.5X5A Adverse effect of other estrogens and progestogens, initial encounter; I10 Essential (primary) hypertension; F32.9 Major depressive disorder, single episode, unspecified; Z78.0 Asymptomatic menopausal state; Z79.899 Other long term (current) drug therapy; Z88.2 Allergy status to sulfonamides
CPT/HCPCS: 36415; 37191; 70450; 71275; 80048; 80053; 83735; 83880; 84484; 85014; 85018; 85025; 85027; 85380; 87081; 93005; 93306; 93970; 96372; 96374; 96375; 96376; 99285; A9270; C1880; C9113; G0378; J0171; J1644; J1650; J2001; J2704; J7120; Q9967

== ENCOUNTER 2020-05-09 09:51 | Outpatient (CLI) | payer OTHER, SELFPAY ==
[2020-05-09 10:09] LABS: Hematocrit 28.8 % (37.0-47.0); Hemoglobin 9.4 g/dL (12.0-15.0)
== END 2020-05-09 09:52 | disposition home or self-care (01) ==
PROVIDERS: PCP Internal Medicine; Visit Provider Physician Assistant
DX: D62 Acute posthemorrhagic anemia (principal)
CPT/HCPCS: 36415; 85014; 85018

== ENCOUNTER → 2020-08-05 00:17 | Outpatient (CLI) | payer OTHER, SELFPAY ==
[2020-08-05 18:42] LABS: SARS-CoV-2 RNA PCR Negative
== END ==
PROVIDERS: PCP Internal Medicine; Visit Provider Internal Medicine Gastroenterology
DX: Z01.812 Encounter for preprocedural laboratory examination (principal); Z20.822 Contact with and (suspected) exposure to COVID-19
CPT/HCPCS: C9803; U0003; U0005

== ENCOUNTER 2020-08-08 00:38 | Day surgery (SDC) | payer OTHER, SELFPAY ==
[2020-05-30 13:38] VITALS: BMI 27.2
[2020-07-26 15:55] VITALS: BMI 28.5
[2020-08-08 06:50] VITALS: BP 142/80; PULSE 74; RESP 16; TEMP 36.3; O2SAT 97
[2020-08-08 06:59] VITALS: BMI 28.5
[2020-08-08] MEDS: LACTATED RINGERS 1,000 ML 150 ML IV CONT (07:02)
--- NOTE | 2020-08-08 07:52 | WPDANESEPPF ---
Anes - Initial Pre Proc Eval Procedure: Operation Date: 08/08/20 08:00 Proposed Procedures p Esophagogastroduodenoscopy - Lamont Shah MD Date/Time: 08/08/20 07:52 Surgeon: Lamont Shah MD Pre Op Diagnosis: gastric ulcer Patient Data Age: 60 Gender: F Height: 5 ft 6 in Weight: 80.2 kg Allergies Allergy/AdvReac Type Severity Reaction Status Date / Time Sulfa (Sulfonamide Allergy Unknown Hives Verified 08/08/20 06:57 Antibiotics) Home Medications Medication Instructions Recorded Confirmed Type pantoprazole 40 mg PO BID #60 tablet 05/04/20 08/08/20 Rx Patient hx anesthesia problems: none Family hx anesthesia problems: none PMFSH Past Medical History Medical History (Updated 05/04/20 @ 16:14 by Lamont Shah MD) Acute blood loss anemia Depression Essential (primary) hypertension Gastric ulcer GIB (gastrointestinal bleeding) Melena Surgical History Surgical History History of abdominal hysterectomy Previous section Family History Family History Father Hypertension Family history of cardiovascular disease Mother Family history of malignant neoplasm of cervix Social History Social History Smoking status: Never smoker Alcohol intake: current Drinks per week: 1 Alcohol use details: 3 Substance use: never Substance use type: does not use Living arrangements: with family Gender identity (if verbalized by the patient): Female Spiritual care concerns: No Anes - Eval Final PreProcedure Day of Procedure 08/08/20 07:52 Patient weight: overweight Heart: regular rate and rhythm Lungs: clear to auscultation Airway: Mallampati scale class II Neurological: alert and oriented Last oral intake: >/= 8 hours ASA classification: III Emergent: no Anesthetic plan: proceed Anesthesia type and monitoring: general GIVS and standard monitoring Informed Consent: The patient's anesthetic plan and its attendant risks and benefits were discussed with the patient/family/POA. Questions were solicited and answers provided to the satisfaction of the patient/family/POA.
--- NOTE | 2020-08-08 08:04 | PM.HPGS ---
History of Present Illness History of Present Illness Consent: Risks, benefits, and alternatives have been discussed and questions answered. Patient agrees to proceed with procedure. Chief complaint: gastric ulcer Narrative: Raquel Mccarty is a 60 year old female with bleeding gastric ulcer 05/2020 treated with EGD, she is here to reassess Review of Systems Constitutional: Constitutional: Denies headache(s) and Denies weakness Eyes: Eyes: Denies blurry vision ENT: Reports Normal hearing present, Denies headache(s) and Denies neck pain Cardiovascular: Cardiovascular: Denies chest pain and Denies dyspnea Respiratory: Respiratory: Denies dyspnea Gastrointestinal: Gastrointestinal: Reports no additional gastrointestinal complaints Genitourinary: Genitourinary: Denies dysuria Musculoskeletal: Musculoskeletal: Denies neck pain Integumentary/Breasts: Skin/Breast: Denies dry skin Neurologic: Reports Normal hearing present, Denies headache(s) and Denies weakness Psychiatric: Psychiatric: Denies anxiety Endocrine: Endocrine: Denies change in body appearance Hematologic/Lymphatic: Hematologic/Lymphatic: Denies easy bleeding Allergic/Immunologic: Allergic/Immunologic: Denies urticaria PMF Past Medical History Medical History (Updated 05/04/20 @ 16:14 by Lamont Shah MD) Acute blood loss anemia Depression Essential (primary) hypertension Gastric ulcer GIB (gastrointestinal bleeding) Melena Surgical History Surgical History History of abdominal hysterectomy Previous section Family History Family History Father Hypertension Family history of cardiovascular disease Mother Family history of malignant neoplasm of cervix Social History Social History Smoking status: Never smoker Alcohol intake: current Drinks per week: 1 Alcohol use details: 3 Substance use: never Substance use type: does not use Living arrangements: with family Gender identity (if verbalized by the patient): Female Spiritual care concerns: No Meds Home Medications and Allergies Home Medications Medication Instructions Recorded Confirmed Type pantoprazole 40 mg PO BID #60 tablet 05/04/20 08/08/20 Rx Allergies Allergy/AdvReac Type Severity Reaction Status Date / Time Sulfa (Sulfonamide Allergy Unknown Hives Verified 08/08/20 06:57 Antibiotics) Exam Const: General: comfortable and no acute distress HENMT: General nose exam: Normal nares present Eyes: General: appearance normal, both eyes and all related structures Neck: Neck: no JVD Resp: Auscultation: clear to auscultation bilaterally Cardio: Rate: regular rate Rhythm: regular rhythm GI: Inspection: non-distended GI Palp: Yes Soft to palpation Skin: General skin exam: normal color Neuro: General: gait normal Speech: normal speech Extrem: General: normal to inspection Psych: Mental Status: mental status grossly normal Assessment and Plan Assessment and plan (1) Gastric ulcer: Code(s): K25.9 - Gastric ulcer, unspecified as acute or chronic, without hemorrhage or perforation Status: Acute Assessment and Plan: egd to assess for healing
[2020-08-08 08:22] VITALS: BP 114/60; PULSE 73; RESP 21; O2SAT 100
[2020-08-08 08:32] VITALS: BP 126/66; PULSE 68; RESP 22; O2SAT 99
[2020-08-08 08:42] VITALS: BP 126/81; PULSE 60; RESP 24; O2SAT 100
== END 2020-08-08 08:52 | disposition home or self-care (01) ==
PROVIDERS: PCP Internal Medicine; Visit Provider Internal Medicine Gastroenterology
PROC: 0DJ08ZZ Inspection of Upper Intestinal Tract, Via Natural or Artificial Opening Endoscopic (ICD-10-PCS; CPT 43235; principal; 2020-08-08 08:00)
DX: Z09 Encounter for follow-up examination after completed treatment for conditions other than malignant neoplasm (principal); K29.50 Unspecified chronic gastritis without bleeding; Z87.11 Personal history of peptic ulcer disease
CPT/HCPCS: 43239; 88305; C9803; J2704; J7120; U0003; U0005

== ENCOUNTER 2021-04-07 12:12 | Outpatient (CLI) | payer OTHER, SELFPAY ==
--- NOTE | ~2021-04-07 | CT_ITS ---
EXAMINATION: CTA chest PE protocol DATE: 04/07/2021 13:23 INDICATION: Dyspnea. Elevated d-dimer. TECHNIQUE: Computed tomography (CT) pulmonary angiogram of the chest was performed with 100 mL Omnipa que-350 intravenous contrast. Additional 3D reconstructions utilizing coronal maximum intensity proje ction (MIP) were performed. Automated exposure control and iterative reconstruction technique were em ployed. The dose-length product was 219.91 mGy-cm. COMPARISON: 04/30/2020 FINDINGS: Good contrast opacification of the pulmonary arteries. There is mild streak artifact from dense contr ast in the superior vena cava and right atrium. No significant respiratory motion artifact yielding d iagnostic for the study with no pulmonary embolism. Dependent groundglass opacities consistent with a telectasis in the bilateral lungs. No pneumonia, pulmonary edema, pleural effusion or pneumothorax. H eart size is normal. No pericardial effusion. Thoracic aorta is normal in caliber with no dissection. No pathologically enlarged thoracic lymphadenopathy. Moderate thoracic spondylosis. IMPRESSION: 1. No pulmonary embolism or other acute cardiopulmonary disease. Reviewed, dictated and finalized at location B. [employer]
[2021-04-07 13:10] LABS: Estimated Glomerular Filt Rate 56
== END 2021-04-07 12:13 | disposition home or self-care (01) ==
LOC: ANHIMG 12:18
PROVIDERS: PCP Internal Medicine; Visit Provider Physician Assistant Medical
DX: R79.1 Abnormal coagulation profile (principal); Z86.711 Personal history of pulmonary embolism
CPT/HCPCS: 71275; Q9967

== ENCOUNTER 2023-01-24 08:00 | Outpatient (RCR) | payer BC, SELFPAY ==
--- NOTE | 2022-11-29 16:56 | PTOPEVAL1 ---
Assessment and note entered by Kemi Ramey, PT Evaluation Information Assessment Status Evaluation Diagnosis sciatica unspecified side, low back pain unspecified Therapy conditions abnormal postures, weakness Subjective Information Pt reports has been living with back pain for a long time worked for [employer] for 19 years but this current pain has been going on for a year. Pt blew it off as chair or other excuses like bad back . Saturday woke up in excruciating pain, LLE lock up and couldn't move it. Lately in the last 2 months when kneeling, something pinches or Grabs in the back. Eases herself back up and is good for a while in standing but can't stand retirement. Has had prior sciatic pain in LLE years ago. Went to physical therapy for this. Every now and then will feel sharp pain go down leg. History of blood clot LLE also. Had just gotten over covid and had multiple blood clot sites. Has LLE swelling, has a compression machine uses at least once a week. But behind left knee, something grabs when kneeling, feels like a rubber band in the back of the knee. Has been taking 800 mg Ibuprofen 3x daily for multiple days per MD orders. Reported Pain Level Pain Score 1,0: Self Report Assessment PT Clinical Summary Pt presents with complaints of low back pain and sciatica. Evaluation shows multiple areas of weakness, pelvic upslip with leg length discrepancy, and soft tissue adhesions as well as increased tonicity as noted above. Pt will greatly benefit from therapy to address deficits, improve alignment, and reduce pain while educating patient on program and activities to reduce flare ups of chronic conditions in the future Plan of Care Interventions Electrical Stimulation,Hot Pack/Cold Pack,Manual Therapy,Mechanical Traction,Neuro Re-education, Patient/Caregiver Educati,Therapeutic Activities, Therapeutic Exercise,Ultrasound PT Services Indicated Yes Treatment Frequency and 1-2x weekly x 8 weeks Duration These treatments will address the objective and functional deficits as defined above. The patient will be advanced safely and appropriately in order for the patient to progress towards his/her prior level of function. Additional exercises will be introduced and as well
--- NOTE | 2022-11-29 16:57 | OPREHPOC ---
Outpatient Therapy Plan of Care This is a Multidisciplinary Plan of Care that may contain components documented by all disciplines (PT, OT, and ST.) PT Problem 1 PT Problem #1 Knowledge Deficit PT Goal 1 Goal Pt will be independent in HEP Pt will verbalize understanding of diagnosis and prognosis Target Visit 8 PT Problem 2 PT Problem #2 Pain PT Goal 1 Goal Pt will report greatest pain level at 5/10 or less Target Visit 8 PT Goal 2 Goal Pt will report resolution of pain Target Visit 16 PT Problem 3 PT Problem #3 Impaired Strength PT Goal 1 Goal Pt will demo strength of 4/5 BLE in all tested planes Target Visit 16 PT Goal 2 Goal Pt will demo TRAM strength of 3/5 or greater Target Visit 16
--- NOTE | 2022-12-27 15:18 | PTOPPROG ---
Assessment and note entered by Amadeo Underwood Evaluation Information Assessment Status Progress Diagnosis sciatica, low back pain Subjective Information Pt. reports she is doing better since last Rx. She states that she still has noticable pain described in the left PSIS and buttock. She reports that she has less frequent moments of intense pain, but still gets occasional increases. She states that she would like to continue with skilled PT to address remaining pain and continue to improve her comfort with prolonged standing activities. Assessment PT Clinical Summary Pt. has attended a total of 6 treatment sessions. In this time she has demonstrated improvements in reports of pain frequency, core strength and mobility. Despite these improvements impaired postural awareness and impaired core strength continues to be noted. At this time recommend continued skilled PT to advance pt. through protocol addressing levoscoliosis of the thoracolumbar region and to continue to improve core stability. Plan of Care Interventions Electrical Stimulation,Hot Pack/Cold Pack,Manual Therapy,Neuro Re-education,Therapeutic Activities, Therapeutic Exercise PT Services Indicated Yes Treatment Frequency and 1x/week x 4 visits Duration These treatments will address the objective and functional deficits as defined above. The patient will be advanced safely and appropriately in order for the patient to progress towards his/her prior level of function. Additional exercises will be introduced and as well as a comprehensive home exercise program upon discharge, if needed, ?to ensure carryover of functional gains achieved in the clinic. This treatment plan has been reviewed and agreement upon by the patient.
--- NOTE | 2023-01-10 16:34 | PCPTNOTE ---
Patient called & cancelled scheduled appointment this date due; no reason given
--- NOTE | 2023-01-24 10:56 | PTOPDC ---
Assessment and note entered by Kemi Ramey, PT Assessment Status Discharge Diagnosis sciatica, low back pain Subjective Information Was able to sit on bleachers for football game without pain. Is more aware of her alignemnt, posture, stances and sitting. Difficulty kneeling yesterday and getting up was difficult with knees. But notes knees ad back is also a come and go . Self-percieved improvement: 50% Has learned how to get through the pain when it flares up using the stretches and stability. Still can't do high level activities without significant increases in pain. Yesterday did a lot of lifting and carrying. Yesterday used topical, layed flat about 15 minutes, then put more cream on after that. Then waking today patient is really stiff . Pt reports back pain goes down to annoyance but is always aware of it, is never a 0/10. Reported Pain Level Pain Score 0,7: Self Report Assessment PT Clinical Summary Pt reports overall has made signficant progress with therapy however whenever she attempts high level activities has significant increases in pain . Pt reports applying her knowledge and exercises gained in therapy sessions has met some goals for therapy as well. Pt reports has a neuro consult and MRI referral pending. She reports understanding of DME/TENS education provided, as well as when to return to therapy and continued benefits of therapy after consults.
== END 2023-02-07 08:03 | disposition home or self-care (01) ==
LOC: ANHHIPT 08:00
PROVIDERS: PCP Physician Assistant Medical; Visit Provider Family Medicine
DX: M54.30 Sciatica, unspecified side (principal); M54.50 Low back pain, unspecified
CPT/HCPCS: 97014; 97110; 97112; 97140; 97162; 97750; G0283

== ENCOUNTER 2023-01-31 06:39 | Outpatient (CLI) | payer BC, SELFPAY ==
--- NOTE | ~2023-01-31 | MR_ITS ---
EXAMINATION: MR lumbar spine wo/w con DATE: 01/31/2023 07:32 INDICATION: Low back pain. Sciatica, unspecified side. TECHNIQUE: Magnetic resonance imaging (MRI) of the lumbar spine was performed without and with 14 mL MultiHance intravenous contrast. COMPARISON: Lumbar spine MRI 07/10/2014 FINDINGS: There is 20 degrees levoscoliosis of lumbar spine. There is mild chronic anterior wedging o f T12 vertebral body. There is mildly decreased disc height at L1-L2, moderately decreased disc heigh t at L2-L3, mildly decreased disc height at L3-L4, and severely decreased disc height at L4-L5. The d istal spinal cord signal intensity is normal. The conus medullaris is at L1. The following disc level s are specifically discussed: L1-L2: The disc is bulging. There is mild bilateral facet joint osteoarthritis. There is mild bilater al neural foraminal stenosis. There is mild central canal stenosis. L2-L3: The disc is bulging. There is mild bilateral facet joint osteoarthritis. There is mild bilater al neural foraminal stenosis. There is mild central canal stenosis. L3-L4: The disc is bulging. There is severe right and mild left facet joint osteoarthritis. There is mild bilateral neural foraminal stenosis. There is mild central canal stenosis. L4-L5: The disc is bulging and has an annular fissure. There is mild right and severe left facet join t osteoarthritis. There is mild right and moderate left neural foraminal stenosis. There is mild cent ral canal stenosis. L5-S1: There is a central protrusion. There is moderate right and mild left facet joint osteoarthriti s. There is no neural foraminal stenosis. There is mild central canal stenosis. IMPRESSION: 1. Severe lumbar spondylosis, worsened from 07/10/2014. 2. Lumbar levoscoliosis. Reviewed, dictated and finalized at location E.
== END 2023-01-31 06:40 | disposition home or self-care (01) ==
PROVIDERS: PCP Family Medicine; Visit Provider Family Medicine
DX: M54.30 Sciatica, unspecified side (principal); M41.9 Scoliosis, unspecified; M47.816 Spondylosis without myelopathy or radiculopathy, lumbar region
CPT/HCPCS: 72158; A9577

== ENCOUNTER 2024-06-05 10:36 | Emergency (ER) | payer MEDICARE, OTHER, SELFPAY ==
--- NOTE | ~2024-06-05 | US_ITS ---
EXAMINATION: US venous doppler [facility] DATE: 06/05/2024 14:34 INDICATION: Left lower limb swelling. TECHNIQUE: Grayscale ultrasound images without and with compression and Doppler ultrasound images of the left lower extremity veins were obtained. COMPARISON: Ultrasound 05/01/2020 FINDINGS: The visualized portions of left common femoral vein, profunda (deep) femoral vein, femoral vein, popl iteal vein, peroneal veins, posterior tibial veins, and greater saphenous vein outflow are patent. IMPRESSION: 1. No deep venous thrombosis. Reviewed, dictated and finalized at location A. ONAL SECRETARY
[2024-06-05 11:00] VITALS: BP 132/76; PULSE 75; RESP 18; TEMP 36.6; O2SAT 99
--- OUTSIDE RECORDS SUMMARY | 2024-06-05 11:30 | XMS_ITS | Clinical Summary ---
Author Organization [facility] Address [address] [place] [address] Care Team Providers Care Conductor Orchestra Name Role Phone Compa Huggins MD Primary Care Provider [phone] Akin Obrien MD Unavailable [phone] Allergies Active Allergy Reactions Criticality Noted Date Comments Sulfa (Sulfonamide Antibiotics) Hives Medium Medications mirabegron ER (MYRBETRIQ) 50 mg tablet extended release 24 hr Take 50 mg by mouth pilot teacher before breakfast. Active estradiol (ESTRACE) 1 mg tablet Take 1 mg by mouth pilot teacher before breakfast. Active losartan (COZAAR) 50 mg tablet Take 50 mg by mouth pilot teacher before breakfast. Active calcium carbonate-vitam in D3 600mg (1,500mg) -1,000 unit capsule Take 1 capsule by mouth pilot teacher before breakfast. Active loratadine 10 mg capsule Take 10 mg by mouth pilot teacher before breakfast. Active potassium 99 mg tablet Take 1 tablet by mouth pilot teacher before breakfast. Active magnesium oxide (MAG-OX) 250 mg (150.8 mg elemental) tabletIndicatio ns:hypomagnesem ia Take 250 mg by mouth pilot teacher before breakfast. Active cyanocobalamin (Vitamin B-12) 1,000 mcg sublingual tablet Take 5,000 mcg by mouth daily. Active HYDROcodone-belen taminophen (NORCO) 5-325 mg per tabletIndicatio ns:Pain Take 1-2 tablets by mouth every 4 (four) hours as needed for pain for up to 30 doses. 30 tablet 10/15/2017 Active Eliquis 5 mg tablet Take 5 mg by mouth 2 (two) times a day 08/10/2020 Active gabapentin (NEURONTIN) 100 mg capsule Take 100 mg by mouth 2 (two) times a day 05/11/2020 Active montelukast (SINGULAIR) 10 mg tablet Take 10 mg by mouth daily 10/08/[address] (PROTONIX) 40 mg EC tablet TAKE 1 TABLET BY MOUTH ONCE DAILY IN THE MORNING 08/08/2020 Active Active Problems Problem Noted Date Diagnosed Date Presence of IVC filter 08/24/2020 Assessment & Plan (09/26/2020 1:10 PM CDT): Have recommended venogram with possible IVC filter retrieval. The procedures indications and all risks have been explained she understands and agrees to proceed. Patient will continue anticoagulation post filter retrieval. 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 Patient has mild residual symptoms that include swelling and occasional pain with standing. The symptoms are well controlled with her daily compliance with compression therapy and leg elevation. Continue pneumatic compression, compression stockings. History of pulmonary embolism 08/24/2020 Assessment & Plan (09/26/2020 1:11 PM CDT): Continue anticoagulation post filter retrieval per primary care physician. Deep vein thrombosis (DVT) of left lower extremi ty 07/05/2020 Non-allergic rhinitis 12/15/2018 Reactive airway disease 12/15/2018 Abnormal finding on lung imaging 10/08/2018 Chronic cough 10/08/2018 Environmental and seasonal allergies 10/08/2018 Stress incontinence 10/10/2017 Hypertension 10/10/2017 Acute pharyngitis 06/29/2012 Vitamin B12 deficiency 06/13/2012 Herpes zoster 05/28/2012 Fatigue 04/26/2012 Migraine headache 04/26/2012 Immunizations Immunization Administration Dates Next Due Influenza, Quadrivalent, Rec ombinant, Egg Free, Preservative Free, Intramuscular 12/26/2019 Influenza, Quadrivalent, Spl it, Preservative Free, Intramuscular 05/21/2018,01/19/2017 Pfizer SARS-CoV-2 Monovalent Vaccination (12+ Yrs) PURPLE 09/27/2020,09/01/2020 Surgical History Surgery Date Site/Laterality Comments IN TOTAL ABDOMINAL HYSTERECT W/WO RMVL TUBE OVARY Hysterectomy - (Added by TW Conv) IN DELIVERY ONLY Section - (Added by TW Conv) OVARIAN CYST REMOVAL 04/01/1982 - 03/31/1983 SECTION 1983, 1986, 1988 HYSTERECTOMY 04/01/1998 - 03/31/1999 OOPHORECTOMY 04/01/2009 - 03/31/2010 Medical History Medical History Date Comments PONV (postoperative nausea and vomiting) Family History Medical History Relation Name Comments Heart disease Brother Stroke Brother Heart disease Father Hypertension Father Cervical cancer Mother Thyroid disease Sister Relation Name Status Comments Brother Alive Father (Age 47) Mother Alive Sister Alive Social History Tobacco Use Types Packs/Day Years Used Date Smoking Tobacco: Never Smokeless Tobacco: Never Alcohol Use Standard Drinks/Week Comments Yes 0 (1 standard drink = 0.6 oz pur e alcohol) occasionally AUDIT-C Answer Date Recorded Q1: How often do you have a drink containing alc ohol? 2-3 times a week 10/17/2020 Q2: How many drinks containi ng alcohol do you have on a typical day when you are drinking? 3 or 4 10/17/2020 Q3: How often do you have si x or more drinks on one occasion? 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 CONSULTANT Gender Identity Not on file Sexual Orientation Not on file Obstetrics History Last Filed Vital Signs Vital Sign Reading Time Taken Comments Blood Pressure 140/77 10/17/2020 2:10 PM CDT Pulse 54 10/17/2020 2:10 PM CDT Temperature 36.4 C (97.6 F) 10/15/2017 8:50 AM CDT Respiratory Rate 16 10/17/2020 2:10 PM CDT Oxygen Saturation 98% 10/17/2020 2:10 PM CDT Inhaled Oxygen Concentration - - Weight 81.6 kg (180 lb) 09/20/2020 2:09 PM CDT Height 168.9 cm (5' 6.5 ) 09/20/2020 2:09 PM CDT Body Mass Index 28.62 09/20/2020 2:09 PM CDT Plan of Treatment Not on file Medical Devices Implanted Type Area Automotive Parts Advisor Device Identifier Shelf Expiration Date Model / Serial / Lot [employer] [id number] Obtryx Ii Precisionblue Advantage .15mm 22cm Sling Halo Needle - [id number] Implanted:Qty: 1 on 10/15/2017 by Casa Velasquez MD at [facility] N/A: Urethra [employer] 08/19/2020 [id number] / / [id number] Insurance [facility] CHOICE PLUS [facility] HMO/PPO [place] [address] [facility] PPO [employer] HMO [facility] CHOICE PLUS [facility] HMO/PPO Address: [address] [address] [place] [address] Care Teams Conductor Orchestra Relationship Specialty Start Date End Date Compa Huggins MD [facility] [place] [address] PCP - General 04/25/17 Akin Obrien MD [facility] [address] [address] Surgeon Surgery 10/17/20
--- OUTSIDE RECORDS SUMMARY | 2024-06-05 11:30 | XMS_ITS | Encounter Summary ---
Author Organization [facility] Address [address] [place] [address] Care Team Providers Care Airset Caster Name Role Phone Ina Elizalde Primary Care Provider [phone] Encounter Details Date Type Department Care Team (Late st Contact Info) Description 06/13/2022 Ahead Message [facility] Patient Accounts [address] [place], [place] [id number] [facility] Provider UNINSURED Social History Tobacco Use Types Packs/Day Years Used Date Smoking Tobacco: Never Smokeless Tobacco: Never Alcohol Use Standard Drinks/Week Comments Yes 0 (1 standard drink = 0.6 oz pur e alcohol) AUDIT-C Answer Date Recorded Frequency of Alcohol Consumption 2-4 times a sat10/08/2018 Average Number of Drinks Not on file 019 Frequency of Binge Drinking Not on file 09/29 Comments Unknown Sex and Gender Information Value Date Recorded Sex Assigned at Female 12/04/2023 7:53 AM CDT Legal Sex Female 7:49 PM CDT Gender Identity Female 12/04/2023 7:53 AM CDT Sexual Orientation Not on file COVID-19 Exposure Response Date Recorded In the last 10 days, have yo u been in contact with someone who was confirmed or suspected to have Coronavirus/COVID-19? No / Unsure 05/22/2022 10:55 AM TABLET TECHNICIAN documented as of this encounter Plan of Treatment Not on file documented as of this encounter Visit Diagnoses Not on filedocumented in this encounter Care Teams Airset Caster Relationship Specialty Start Date End Date Ina Elizalde PA [facility] [place] [address] PCP - General PHYSICIAN NURSING TECHNICIAN 05/22/22 documented as of this encounter
--- OUTSIDE RECORDS SUMMARY | 2024-06-05 11:30 | XMS_ITS | Clinical Summary ---
Author Organization [facility] Address [address] [place] [address] Care Team Providers Care Automation Qtp Tester Name Role Phone Ina Elizalde Primary Care Provider Allergies Active Allergy Reactions Criticality Noted Date Comments Sulfa Antibiotics Unknown 04/17/2012 Medications montelukast 10 MG tabletIndicatio ns:Environmenta l and seasonal allergies Take 1 tablet (10 mg total) by mouth nightly at bedtime. 30 tablet 6 9 Active Additional Information Patient not taking.Reported on 05/11/2020 fluticasone propionate (FLONASE) 50 MCG/ACT nasal sprayIndication s:Environmental and seasonal allergies 1 spray by Nasal route daily. 16 g 3 9 Active Additional Information Patient not taking.Reported on 05/11/2020 traMADol 50 MG tablet Take 50 mg by mouth every 8 (eight) hours as needed. 1 Active pantoprazole EC 40 MG tablet Take 40 mg by mouth daily. Active gabapentin 100 MG capsule Take 1 capsule (100 mg total) by mouth 2 (two) times a day. 60 capsule 1 Active Active Problems Problem Noted Date Diagnosed Date Deep vein thrombosis (DVT) o f left lower extremity ([facility]) 07/05/2020 Non-allergic rhinitis 12/15/2018 Mild intermittent reactive a irway disease without complication ([facility]) 12/15/2018 Environmental and seasonal allergies 10/08/2018 Chronic cough 10/08/2018 Abnormal finding on lung imaging 10/08/2018 Hypertension 10/10/2017 Stress incontinence 10/10/2017 Acute pharyngitis 06/29/2012 Vitamin B12 deficiency 06/13/2012 Herpes zoster 05/28/2012 Fatigue 04/26/2012 Migraine headache 04/26/2012 Resolved Problems Problem Noted Date Diagnosed Date Resolved Date Encounter for preventive health examination 04/17/2012 12/11/2019 Family History Medical History Relation Comments Heart Attack Father Hypertension Father Cancer Mother neoplasm of cervix Mother Relation Status Comments Father Mother Social History Tobacco Use Types Packs/Day Years [...] AM CDT Sexual Orientation Not on file Last Filed Vital Signs Vital Sign Reading Time Taken Comments Blood Pressure 130/72 05/11/2020 1:17 PM CDS SALES ADVISOR Pulse 78 05/11/2020 1:17 PM CDS SALES ADVISOR Temperature 36.4 C (97.6 F) 04/29/2020 8:58 AM CDS SALES ADVISOR Respiratory Rate 26 04/29/2020 8:58 AM CDS SALES ADVISOR Oxygen Saturation 98% 04/29/2020 2:46 PM CDS SALES ADVISOR Inhaled Oxygen Concentration - - Weight 81.6 kg (180 lb) 05/11/2020 1:17 PM CDS SALES ADVISOR Height 167.6 cm (5' 6 ) 05/11/2020 1:17 PM CDS SALES ADVISOR Body Mass Index 29.05 05/11/2020 1:17 PM CDS SALES ADVISOR Plan of Treatment Health Maintenance Due Date Last Done Comments Colorectal Cancer Screening Colonoscopy (10 Years) 1959 Pneumococcal Vaccine: 65+ Years (1 of 2 - PCV) 1965 Pneumococcal Vaccine: Pediatrics (0 to 5 Years) and At-Risk Patients (6 to 64 Years) (1 of 2 - PCV) 1965 Hepatitis C 1977 DTaP, Tdap and Td Vaccines ( 1 - Tdap) 1978 Zoster Vaccines (1 of 2) 2009 RSV Immunization or 60+ Years (1 - Risk 60-74 years 1-dose series) 2019 COVID-19 Vaccine (3 2023-2 5 season) 2023 09/27/2020, 09/01/2020 Influenza Adult (#1) 2023 12/26/2019, 05/21/2018, 01/19/2017 Dexa Scan (General) 2024 Mammogram Screening 05/22/2024 05/22/2022 Meningococcal B Vaccine Aged Out No l onger eligible based on patient's age to complete this topic Meningococcal Vaccine Aged Out No elgin claudia eligible based on patient's age to complete this topic RSV Immunizations Under 20 Months Aged Out No longer eligible b ased on patient's age to complete this topic Procedures Procedure Name Priority Date/Time Associated Diagnosis Comments MG SCREENING W EMRE SAMI DIGI Routine 05/22/2022 11:17 AM CDS SALES ADVISOR Encounter for screening mammogram for malignant neoplasm of breast from Last 3 Months or Most Recently Relevant to Health Maintenance Results * MG SCREENING W EMRE SAMI DIGI (05/22/2022 11:17 AM CDS SALES ADVISOR) Anatomical Region Laterality Modality Breast Bilateral Mammography 05/22/2022 4:16 PM CDS SALES ADVISOR Narrative 05/22/2022 4:20 PM CDS SALES ADVISOR IMAGING STUDIES: Bilateral screening mammograms with computer-aided detection with 2-D and 3-D imaging. Tomosynthesis. DATE: 05/22/2022 11:07 AM HISTORY: Encounter for screening mammogram for malignant neoplasm of breast . COMPARISON: 01/22/2017. 02/20/2017. TISSUE TYPE: The breast tissue is heterogeneously dense, which may obscure small masses. FINDINGS: 1. Moderately dense fibroglandular tissue pattern is present. Benign nodularity. Benign calcifications. 2. No malignant microcalfcifications, new dominant masses, or architectural distortion. 3. No skin thickening or nipple retraction. Axillary regions are within normal limits. IMPRESSION: 1. No mammographic evidence of malignancy. 2. Assessment: ACR BI-RADS 2 - BENIGN FINDING(S) 3 .Routine Screening Bilateral MQSA BI-RADS Categories: Category 0 - needs additional imaging evaluation. Category 1 - negative. Category 2 - benign findings. Category 3 - probably benign findings, but short interval follow-up is recommended. Category 4 - suspicious abnormality and biopsy should be considered though the lesion may well be benign. Category 5 - highly suggestive of malignancy and appropriate action should be taken. Category 6 - known biopsy-proven malignancy A) A negative report should not delay a biopsy if a dominant or clinically suspicious mass is present. B) Adenosis and dense breasts may obscure an underlying neoplasm. C) Study interpreted with computer aided detection. Ordered By: LIO BECKHAM Interpreted By: Ricky Lopez, 05/22/2022 4:16 PM iLo Beckham MD MAMMO Final Resu lt from Last 3 Months or Most Recently Relevant to Health Maintenance Insurance Care Teams Automation Qtp Tester Relationship Specialty [place] [address] [place] [id number] PCP - General PHYSICIAN LOADER UNLOADER 05/22/22
--- OUTSIDE RECORDS SUMMARY | 2024-06-05 11:30 | XMS_ITS | Referral Summary ---
Author Organization [facility] Address [address] [place] [address] Care Team Providers Care Director Global Medical Affairs Name Role Phone Compa Huggins MD Primary Care Provider [phone] Akin Obrien MD Unavailable [phone] Allergies Active Allergy Reactions Criticality Noted Date Comments Sulfa (Sulfonamide Antibiotics) Hives Medium Medications mirabegron ER (MYRBETRIQ) 50 mg tablet extended release 24 hr Take 50 mg by mouth checker loader before breakfast. Active estradiol (ESTRACE) 1 mg tablet Take 1 mg by mouth checker loader before breakfast. Active losartan (COZAAR) 50 mg tablet Take 50 mg by mouth checker loader before breakfast. Active calcium carbonate-vitam in D3 600mg (1,500mg) -1,000 unit capsule Take 1 capsule by mouth checker loader before breakfast. Active loratadine 10 mg capsule Take 10 mg by mouth checker loader before breakfast. Active potassium 99 mg tablet Take 1 tablet by mouth checker loader before breakfast. Active magnesium oxide (MAG-OX) 250 mg (150.8 mg elemental) tabletIndicatio ns:hypomagnesem ia Take 250 mg by mouth checker loader before breakfast. 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 Gender Identity Not on file Sexual Orientation Not on file Last Filed [...] on file Medical Devices Implanted Type Area Industrial Truck Operator Device Identifier Shelf Expiration Date Model / Serial / Lot TrackaPhone [id number] Obtryx Ii Precisionblue Advantage .15mm 22cm Sling Halo Needle - [id number] Implanted:Qty: 1 on 10/15/2017 by Casa Velasquez MD at [facility] N/A: Urethra [employer] 08/19/2020 [id number] / / [id number] Insurance [facility] PLUS Care Teams Director Global Medical Affairs Relationship Specialty Start Date End Date Compa Huggins MD [address] [place] [id number] PCP - General 04/25/17 Akin Obrien MD [facility] [address] [address] Surgeon Surgery 10/17/20
[2024-06-05 13:37] VITALS: BP 139/73; PULSE 74; RESP 13; TEMP 36.4; O2SAT 100
--- NOTE | 2024-06-05 13:53 | ED_ITS ---
HPI - General Adult General Chief complaint: Extremity Injury, Lower Stated complaint: left lower leg pain, history of blood clots Time Seen by Provider: 06/05/24 13:41 History of Present Illness HPI narrative: 64-year-old female presenting to the emergency department for evaluation for left lower extremity swelling. Patient does have a prior history of a DVT in that same leg approximately 4 years ago secondary to COVID. At that time patient did have a IVC filter and was on blood thinners. Patient has had the filter removed and patient is no longer on blood thinners. Patient states and his legs does swell up when she is active during the day. Patient did not feel that she was excessively active yesterday but did notice increased swelling of the left leg today. Patient did complain of some left groin pain. Patient denies any associated chest pain or shortness of breath. Related Data Home Medications ?Medication ?Instructions ?Recorded ?Confirmed ?Last Taken ?Type escitalopram oxalate 10 mg tablet 10 mg PO DAILY 11/26/22 04/13/24 Unknown History (Lexapro) Allergies Allergy/AdvReac Type Severity Reaction Status Date / Time Sulfa (Sulfonamide Allergy Unknown Hives Verified 04/13/24 13:12 Antibiotics) Review of Systems Review of Systems: All systems reviewed & are unremarkable except as noted in HPI and below PMFSH Past Medical History Medical History Cataract Preoperative clearance Annual physical exam Thyroid disorder screening Acute sinusitis Scoliosis Lumbar spondylosis Sciatica Lumbar pain Gastric ulcer Acute blood loss anemia GIB (gastrointestinal bleeding) Melena Depression Essential (primary) hypertension Surgical History Surgical History History of abdominal hysterectomy Previous section Family History Family History Father Hypertension Family history of cardiovascular disease Mother Family history of malignant neoplasm of cervix Social History Social History (Updated 04/29/24 @ 13:40 by Peyman Masterson) Social History: 04/29/24 very confident with medical forms Smoking status: Never smoker Alcohol intake: current Drinks per week: 3 Alcohol use details: 3 Substance use: never Substance use type: does not use Do You Feel Safe in your Home?: Yes Lack of Transportation: No Lack of Food: Never True Current Housing: I Have Housing Concerned About Future Housing: No Difficulty Paying Gas/Electric Bills: No Difficulty Paying for Meds: No Currently Unemployed: No Education: High School Diploma/GED Difficulty w/ Childcare or Family Care: No Living arrangements: with family Gender identity (if verbalized by the patient): Female Spiritual care concerns: No Exam Narrative: APPEARANCE: Well appearing, no pain, no distress, well-nourished. HEAD: normocephalic, atraumatic. EYES: PERRLA/EOMI, conjunctivae clear. NOSE: Normal no drainage EARS:TMS clear with good light reflex. THROAT: Pharynx clear, no exudate. NECK: Supple. No adenopathy, no masses. RESPIRATORY: Airway patent, respirations nonlabored. Clear to auscultation bilaterally, no rales, rhonchi, wheezing. CARDIOVASCULAR: Regular rate and rhythm without murmurs rubs or gallops. ABDOMINAL: Soft, nontender, nondistended, normal bowel sounds MUSCULOSKELETAL: Left lower extremity swelling with no tenderness to palpation, no evidence of cellulitis, neurovascularly intact. NEURO: Alert. Cranial nerves II through XII intact. Good gait. Good coordination SKIN: Warm, dry. Normal Color Course Vital Signs Vital signs: Vital Signs Temperature 97.9 F 06/05/24 11:00 Pulse Rate 75 06/05/24 11:00 Respiratory Rate 18 06/05/24 11:00 Blood Pressure 132/76 06/05/24 11:00 Pulse Oximetry 99 06/05/24 11:00 Oxygen Delivery Room Air 06/05/24 11:00 Temperature 97.6 F 06/05/24 15:29 Pulse Rate 69 06/05/24 15:29 Respiratory Rate 20 06/05/24 15:29 Blood Pressure 131/67 06/05/24 15:29 Pulse Oximetry 99 06/05/24 15:29 Oxygen Delivery Room Air 06/05/24 13:37 Medical Decision Making MDM Narrative Medical decision making narrative: 64-year-old female presented emergency department for evaluation for left lower extremity edema. No significant evidence of cellulitis, no significant calf tenderness to palpation. Ultrasound was negative for DVT. Patient denies any chest pain or shortness of breath. Patient was encouraged to have close follow- up with her primary care physician. All questions concerns were addressed. Differential Diagnosis Differential Diagnosis: Cellulitis, edema, DVT Vital Signs Vital Signs: Vital Signs Temperature 97.9 F 06/05/24 11:00 Pulse Rate 75 06/05/24 11:00 Respiratory Rate 18 06/05/24 11:00 Blood Pressure 132/76 06/05/24 11:00 Pulse Oximetry 99 06/05/24 11:00 Oxygen Delivery Room Air 06/05/24 11:00 Temperature 97.6 F 06/05/24 15:29 Pulse Rate 69 06/05/24 15:29 Respiratory Rate 20 06/05/24 15:29 Blood Pressure 131/67 06/05/24 15:29 Pulse Oximetry 99 06/05/24 15:29 Oxygen Delivery Room Air 06/05/24 13:37 Imaging Data Radiologist's impression: Impressions Venous Doppler Study 06/05/24 14:37 IMPRESSION: 1. No deep venous thrombosis. Discharge Plan Discharge Clinical Impression: Left leg swelling Patient Disposition: Home, Self-Care Condition: Stable Instructions: Antibiotic Form Additional Instructions: Have close follow-up with your primary care physician. If you have any worsening symptoms then please call or return to the emergency department. Patient Language: Romansh Prescriptions: No Action prednisone 20 mg tablet 20 mg PO DAILY Qty: 5 0RF escitalopram oxalate [Lexapro] 10 mg tablet 10 mg PO DAILY amlodipine 5 mg tablet 5 mg PO DAILY Qty: 90 0RF atorvastatin 40 mg tablet 40 mg PO DAILY Qty: 90 1RF Eliquis 5 mg tablet 5 mg PO BID Qty: 90 1RF cyclobenzaprine 10 mg tablet See Rx Instructions .ROUTE .COMPLEX Qty: 90 0RF Dose Instruction: TAKE 1 TABLET BY MOUTH 3 TIMES A DAY NEEDED FOR MUSCLE SPASM Rx Instructions: TAKE 1 TABLET BY MOUTH 3 TIMES A DAY NEEDED FOR MUSCLE SPASM ibuprofen 800 mg tablet 800 mg PO TID PRN (Reason: pain) Qty: 90 1RF pantoprazole 20 mg tablet,delayed release (DR/EC) 20 mg PO QAM Qty: 90 0RF Follow-up/Referrals: Ina Elizalde PA-C [Primary Care Provider] -
--- OUTSIDE RECORDS SUMMARY | 2024-06-05 14:40 | XMS_ITS | Clinical Summary ---
Author Organization [facility] Address [address] [place] [address] Care Team Providers Care Form Carpenter Name Role Phone Compa Huggins MD Primary Care Provider [phone] Akin Obrien MD Unavailable [phone] Allergies Active Allergy Reactions Criticality Noted Date Comments Sulfa (Sulfonamide Antibiotics) Hives Medium Medications mirabegron ER (MYRBETRIQ) 50 mg tablet extended release 24 hr Take 50 mg by mouth display screen fabricator before breakfast. Active estradiol (ESTRACE) 1 mg tablet Take 1 mg by mouth display screen fabricator before breakfast. Active losartan (COZAAR) 50 mg tablet Take 50 mg by mouth display screen fabricator before breakfast. Active calcium carbonate-vitam in D3 600mg (1,500mg) -1,000 unit capsule Take 1 capsule by mouth display screen fabricator before breakfast. Active loratadine 10 mg capsule Take 10 mg by mouth display screen fabricator before breakfast. Active potassium 99 mg tablet Take 1 tablet by mouth display screen fabricator before breakfast. Active magnesium oxide (MAG-OX) 250 mg (150.8 mg elemental) tabletIndicatio ns:hypomagnesem ia Take 250 mg by mouth display screen fabricator before breakfast. 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 N/A: Urethra DirectPointe 08/19/2020 [id number] / / [id number] Insurance [facility]US [facility] PPO [employer] HMO [facility] PLUS Care Teams Form Carpenter Relationship Specialty Start Date End Date Compa Huggins MD [facility] [place] [address] PCP - General 04/25/17 Akin Obrien MD [facility] [address] [address] Surgeon Surgery 10/17/20
--- OUTSIDE RECORDS SUMMARY | 2024-06-05 14:40 | XMS_ITS | Clinical Summary ---
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 ([facility]) 12/15/2018 Environmental and seasonal allergies 10/08/2018 Chronic [...] Comments Blood Pressure 130/72 05/11/2020 1:17 PM LEARNING AND DEVELOPMENT MANAGER Pulse 78 05/11/2020 1:17 PM LEARNING AND DEVELOPMENT MANAGER Temperature 36.4 C (97.6 F) 04/29/2020 8:58 AM LEARNING AND DEVELOPMENT MANAGER Respiratory Rate 26 04/29/2020 8:58 AM LEARNING AND DEVELOPMENT MANAGER Oxygen Saturation 98% 04/29/2020 2:46 PM LEARNING AND DEVELOPMENT MANAGER Inhaled Oxygen Concentration - - Weight 81.6 kg (180 lb) 05/11/2020 1:17 PM LEARNING AND DEVELOPMENT MANAGER Height 167.6 cm (5' 6 ) 05/11/2020 1:17 PM LEARNING AND DEVELOPMENT MANAGER Body Mass Index 29.05 05/11/2020 1:17 PM LEARNING AND DEVELOPMENT MANAGER Plan of Treatment Health Maintenance Due Date [...] EMRE SAMI DIGI Routine 05/22/2022 11:17 AM LEARNING AND DEVELOPMENT MANAGER Encounter for screening mammogram for malignant neoplasm of breast from Last 3 Months or Most Recently Relevant to Health Maintenance Results * MG SCREENING W EMRE SAMI DIGI (05/22/2022 11:17 AM LEARNING AND DEVELOPMENT MANAGER) Anatomical Region Laterality Modality Breast Bilateral Mammography 05/22/2022 4:16 PM LEARNING AND DEVELOPMENT MANAGER Narrative 05/22/2022 4:20 PM LEARNING AND DEVELOPMENT MANAGER IMAGING STUDIES: Bilateral screening mammograms with computer-aided [...] Interpreted By: Ricky Lopez, 05/22/2022 4:16 PM Lio Beckham MD MAMMO Final Resu lt from Last 3 Months or Most Recently Relevant to Health Maintenance Insurance Care Teams Bar And Filler Assembler Relationship Specialty [place] [address] [place] [address] PCP - General PHYSICIAN MULTIPLE WIRE SAWYER 05/22/22
--- OUTSIDE RECORDS SUMMARY | 2024-06-05 14:40 | XMS_ITS | Referral Summary ---
Author Organization [facility] Address [address] [place] [address] Care Team Providers Care Answering Service Agent Name Role Phone Compa Huggins MD Primary Care Provider [phone] Akin Obrien MD Unavailable [phone] Allergies Active Allergy Reactions Criticality Noted Date Comments Sulfa (Sulfonamide Antibiotics) Hives Medium Medications mirabegron ER (MYRBETRIQ) 50 mg tablet extended release 24 hr Take 50 mg by mouth grain packer before breakfast. Active estradiol (ESTRACE) 1 mg tablet Take 1 mg by mouth grain packer before breakfast. Active losartan (COZAAR) 50 mg tablet Take 50 mg by mouth grain packer before breakfast. Active calcium carbonate-vitam in D3 600mg (1,500mg) -1,000 unit capsule Take 1 capsule by mouth grain packer before breakfast. Active loratadine 10 mg capsule Take 10 mg by mouth grain packer before breakfast. Active potassium 99 mg tablet Take 1 tablet by mouth grain packer before breakfast. Active magnesium oxide (MAG-OX) 250 mg (150.8 mg elemental) tabletIndicatio ns:hypomagnesem ia Take 250 mg by mouth grain packer before breakfast. 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 N/A: Urethra [email or web address] 08/19/2020 [id number] / / [id number] Insurance [facility] [place] [address] Care Teams Answering Service Agent Relationship Specialty Start Date End Date Compa Huggins MD [address] [place] [address] PCP - General 04/25/17 Akin Obrien MD [facility] [address] [address] Surgeon Surgery 10/17/20
--- OUTSIDE RECORDS SUMMARY | 2024-06-05 14:40 | XMS_ITS | Encounter Summary ---
Author Organization [facility] Address [address] [place] [address] Care Team Providers Care Mascara Molder Name Role Phone Ina Elizalde Primary Care Provider [phone] Encounter Details Date Type Department Care Team (Late st Contact Info) Description 06/13/2022 Skyn [place] Message [facility] Patient Accounts [address] [place] [id number] [facility] Provider UNINSURED Social History Tobacco Use Types [...] Coronavirus/COVID-19? No / Unsure 05/22/2022 10:55 AM UNIT COORDINATOR documented as of this encounter Plan of Treatment Not on file documented as of this encounter Visit Diagnoses Not on filedocumented in this encounter Care Teams Mascara Molder Relationship Specialty Start Date End Date Ina Elizalde PA [facility] [place] [address] PCP - General PHYSICIAN BARBER SHOP MANAGER 05/22/22 documented as of this encounter
[2024-06-05 15:29] VITALS: BP 131/67; PULSE 69; RESP 20; TEMP 36.4; O2SAT 99
== END 2024-06-05 15:31 | disposition home or self-care (01) ==
PROVIDERS: Emergency Provider Emergency Medicine; PCP Physician Assistant Medical
DX: R22.42 Localized swelling, mass and lump, left lower limb (principal); I10 Essential (primary) hypertension; F32.A Depression, unspecified; Z86.718 Personal history of other venous thrombosis and embolism; Z86.16 Personal history of COVID-19; Z90.710 Acquired absence of both cervix and uterus; Z79.899 Other long term (current) drug therapy
CPT/HCPCS: 93971; 99284

== ENCOUNTER 2024-09-11 08:27 | Outpatient (CLI) | payer OTHER, SELFPAY ==
--- OUTSIDE RECORDS SUMMARY | 2024-09-11 08:35 | XMS_ITS | Referral Summary ---
Author Organization [facility] Address [address] [place] [address] Care Team Providers Care Special Education Coordinator Name Role Phone Compa Huggins MD Primary Care Provider [phone] Akin Obrien MD Unavailable [phone] Allergies Active Allergy Reactions Criticality Noted Date Comments Sulfa (Sulfonamide Antibiotics) Hives Medium Medications mirabegron ER (MYRBETRIQ) 50 mg tablet extended release 24 hr Take 50 mg by mouth interior specialist before breakfast. Active estradiol (ESTRACE) 1 mg tablet Take 1 mg by mouth interior specialist before breakfast. Active losartan (COZAAR) 50 mg tablet Take 50 mg by mouth interior specialist before breakfast. Active calcium carbonate-vitam in D3 600mg (1,500mg) -1,000 unit capsule Take 1 capsule by mouth interior specialist before breakfast. Active loratadine 10 mg capsule Take 10 mg by mouth interior specialist before breakfast. Active potassium 99 mg tablet Take 1 tablet by mouth interior specialist before breakfast. Active magnesium oxide (MAG-OX) 250 mg (150.8 mg elemental) tabletIndicatio ns:hypomagnesem ia Take 250 mg by mouth interior specialist before breakfast. 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 Gender Identity Not on file Sexual Orientation [...] 2:09 PM CDT Height 168.9 cm (5' 6.5) 09/20/2020 2:09 PM CDT Body Mass Index 28.62 09/20/2020 2:09 PM CDT Plan of Treatment Not on file Medical Devices Implanted Type Area Manager Internship Device Identifier Shelf Expiration Date Model / Serial / Lot BetaVersity [id number] Obtryx Ii Precisionblue Advantage .15mm 22cm Sling Halo Needle - [id number] Implanted:Qty: 1 on 10/15/2017 by Casa Velasquez MD at [facility] N/A: Urethra BetaVersity 08/19/2020 [id number] / / [id number] Insurance [facility] CHOICE PLUS [facility] HMO/PPO Address: [address] [address] [place] [address] [facility] PPO [facility] HMO [facility] CHO[facility] PLUS [facility] H[facility]/PPO Address: [facility] [address] [place] [address] Care Teams Special Education Coordinator Relationship Specialty Start Date End Date Compa Huggins MD [address] [place] [address] PCP - General 04/25/17 Akin Obrien MD [facility] [address] [place] [address] Surgeon Surgery 10/17/20
--- OUTSIDE RECORDS SUMMARY | 2024-09-11 08:35 | XMS_ITS | Clinical Summary ---
Author Organization [facility] Address [address] [place] [address] Care Team Providers Care Bisque Kiln Placer Name Role Phone Compa Huggins MD Primary Care Provider [phone] Akin Obrien MD Unavailable [phone] Allergies Active Allergy Reactions Criticality Noted Date Comments Sulfa (Sulfonamide Antibiotics) Hives Medium Medications mirabegron ER (MYRBETRIQ) 50 mg tablet extended release 24 hr Take 50 mg by mouth physical laboratory assistant before breakfast. Active estradiol (ESTRACE) 1 mg tablet Take 1 mg by mouth physical laboratory assistant before breakfast. Active losartan (COZAAR) 50 mg tablet Take 50 mg by mouth physical laboratory assistant before breakfast. Active calcium carbonate-vitam in D3 600mg (1,500mg) -1,000 unit capsule Take 1 capsule by mouth physical laboratory assistant before breakfast. Active loratadine 10 mg capsule Take 10 mg by mouth physical laboratory assistant before breakfast. Active potassium 99 mg tablet Take 1 tablet by mouth physical laboratory assistant before breakfast. Active magnesium oxide (MAG-OX) 250 mg (150.8 mg elemental) tabletIndicatio ns:hypomagnesem ia Take 250 mg by mouth physical laboratory assistant before breakfast. 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 PPO [employer] HMO [facility] CHOICE PLUS Care Teams Bisque Kiln Placer Relationship Specialty Start Date End Date Compa Huggins MD [facility] [place] [address] PCP - General 04/25/17 Akin Obrien MD [address] [facility] [address] [place] [address] Surgeon Surgery 10/17/20
[2024-09-11 08:58] LABS: Basophils Percent Auto 0.7 % (0.2-1.2); Eosinophils Absolute Auto 0.1 K/mm3 (0-0.3); Eosinophils Percent Auto 1.9 % (0-4.4); Hematocrit 38.9 % (37.0-47.0); Hemoglobin 12.8 g/dL (12.0-15.0); Immature Granulocyte Absolute 0.01 K/mm3 (0.00-0.031); Immature Granulocyte Percent A 0.2 % (0-0.5); Lymphocytes Absolute Auto 1.27 K/mm3 (0.9-3.2); Lymphocytes Percent Auto 23.6 % (18.3-44.2); Mean Corpuscular HGB Conc 32.9 g/dl (32-36); Mean Corpuscular Hemoglobin 29.5 pg (26-34); Mean Corpuscular Volume 89.6 fl (80-100); Mean Platelet Volume 10.9 fl (7.4-10.4); Monocytes Absolute Auto 0.5 K/mm3 (0.1-0.6); Neutrophils Absolute Auto 3.4 K/mm3 (1.3-6.7); Neutrophils Percent Auto 63.6 % (45.5-73.1); Platelet Count Result 220 k/mm3 (150-375); Red Blood Count 4.34 M/mm3 (4.2-5.4); Red Cell Distribution Width 12.8 % (11.5-14.5); White Blood Count 5.4 K/mm3 (4.5-10.0)
[2024-09-11 09:11] LABS: Anion Gap 5 mmol/L (4-12); Blood Urea Nitrogen 16 mg/dL (7-17); Calcium 9.5 mg/dL (8.4-10.2); Carbon Dioxide 27 mmol/L (22-30); Chloride 107 mmol/L (98-107); Estimated Glomerular Filt Rate 51; Glucose 86 mg/dL (65-110); Potassium 4.5 mmol/L (3.4-5.0); Sodium 139 mmol/L (137-145)
== END 2024-09-11 08:28 | disposition home or self-care (01) ==
PROVIDERS: Surgery; PCP Physician Assistant Medical; Visit Provider Urology
DX: K40.90 Unilateral inguinal hernia, without obstruction or gangrene, not specified as recurrent (principal)
CPT/HCPCS: 36415; 80048; 85025; 86850; 86900; 86901

== ENCOUNTER 2024-09-17 00:38 | Day surgery (SDC) | payer OTHER, SELFPAY ==
[2024-09-10 12:54] VITALS: BMI 25.2
--- NOTE | 2024-09-10 13:09 | PC.NURSE ---
Report to the Outpatient Waiting Room, entrance under the green pavilion located off [facility], at time __1000am on date ___09/17/24 ____. Planned Procedure Time: __1200pm .? Time changes happen often and if your time is changed the preop area will call you the afternoon before. - You and your visitor will be asked to self-screen and do not enter if you have any COVID symptoms. Please call surgeon if you need to reschedule. - A mask is optional within the hospital at this time. Patients may have clear liquids (water, carbonated beverages, clear teas, apple juice) until 3 hours prior to surgery with a maximum of 20 ounces. - No food from midnight until time of surgery and no smoking, or chewing tobacco (or any form of nicotine). No chewing gum, candy or mints. Take only the following medications with a SIP of water on the morning of surgery: ___Amlodipine , Tylenol if needed DO NOT STOP ANY OF YOUR OTHER PRESCRIPTION MEDICATIONS PRIOR TO SURGERY EXCEPT THE FOLLOWING Hold all vitamins and supplements for 3 days per anesthesiologist. Medications to discontinue per physician None Date to take last dose None Please no make-up, nail macedonian, hairspray, perfume, deodorant, or body powder the day of surgery.? No jewelry (including any body piercings) or valuables the day of surgery, leave them at home.? Please take a shower or bath the night before, or the morning of, surgery with an antibacterial soap.? Wear comfortable, loose fitting clothing.? GOLD DIAL SOAP - Jewelry must be removed prior to entering the operating room.? Rings and piercings that are not removed may be cut off. - The hospital will not accept responsibility for valuables.? - Please leave all valuables, including medications, at home the day of surgery. If you are going home after surgery, a licensed star route mail driver must drive you home.? - NO public transportation without another adult if you receive anesthesia. - We recommend that an adult stay with you for 24 hours following discharge. - We also recommend that you do not drive, make important decision, drink alcoholic beverages, or take any drugs that were not prescribed by your health care provider for at least 24 hours after your discharge time. Follow any additional instructions given to you from your surgeon. Telephone instructions given to __Patient and asked if any additional questions and then verbalized understanding. Patient advised to call surgeon office or pre surgery nurse liaison [phone] if any additional questions.
[2024-09-17] VITALS (9 sets, daily range): BP systolic 106–144; BP diastolic 47–75; PULSE 57–69; RESP 12–18; TEMP 36.3–36.4; O2SAT 97–100
--- OUTSIDE RECORDS SUMMARY | 2024-09-17 00:42 | XMS_ITS | Referral Summary ---
Author Organization [facility] Address [address] [place] [address] Care Team Providers Care Counter Molder Name Role Phone Compa Huggins MD Primary Care Provider [phone] Akin Obrien MD Unavailable [phone] Allergies Active Allergy Reactions Criticality Noted Date Comments Sulfa (Sulfonamide Antibiotics) Hives Medium Medications mirabegron ER (MYRBETRIQ) 50 mg tablet extended release 24 hr Take 50 mg by mouth boiling house oiler before breakfast. Active estradiol (ESTRACE) 1 mg tablet Take 1 mg by mouth boiling house oiler before breakfast. Active losartan (COZAAR) 50 mg tablet Take 50 mg by mouth boiling house oiler before breakfast. Active calcium carbonate-vitam in D3 600mg (1,500mg) -1,000 unit capsule Take 1 capsule by mouth boiling house oiler before breakfast. Active loratadine 10 mg capsule Take 10 mg by mouth boiling house oiler before breakfast. Active potassium 99 mg tablet Take 1 tablet by mouth boiling house oiler before breakfast. Active magnesium oxide (MAG-OX) 250 mg (150.8 mg elemental) tabletIndicatio ns:hypomagnesem ia Take 250 mg by mouth boiling house oiler before breakfast. 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 N/A: Urethra [employer]IQ 08/19/2020 [id number] / / [id number] Insurance [facility] CHOICE PLUS [facility] CHO[facility] PLUS Care Teams Counter Molder Relationship Specialty Start Date End Date Compa Huggins MD [address] [place] [address] PCP - General 04/25/17 Akin Obrien MD [facility] [address] [place] [address] Surgeon Surgery 10/17/20
--- OUTSIDE RECORDS SUMMARY | 2024-09-17 00:42 | XMS_ITS | Clinical Summary ---
Author Organization [facility] Address [address] [place] [address] Care Team Providers Care Candles Pourer Name Role Phone Ina Elizalde Primary Care Provider Allergies Active Allergy Reactions Criticality Noted Date Comments Sulfa Antibiotics Unknown 04/17/2012 Medications amLODIPine (NORVASC) 5 MG tablet Take 1 tablet (5 mg total) by mouth daily. 5 Active ibuprofen (MOTRIN) 800 MG tablet Take 1 tablet (800 mg total) by mouth every 8 (eight) hours as needed for Pain. 5 Active cyclobenzaprine (FLEXERIL) 10 MG tablet Take 1 tablet (10 mg total) by mouth 3 (three) times daily as needed for Muscle Spasms. Active famotidine (PEPCID) 20 MG tablet Take 1 tablet (20 mg total) by mouth daily. Active loratadine (CLARITIN) 10 MG tablet Take 1 tablet (10 mg total) by mouth daily. Active montelukast 10 MG tabletIndicatio ns:Environmenta l and seasonal allergies Take 1 tablet (10 mg total) by mouth nightly at bedtime. 30 tablet 6 9 08/26/19 25 Discontinu ed(Error) fluticasone propionate (FLONASE) 50 MCG/ACT nasal sprayIndication s:Environmental and seasonal allergies 1 spray by Nasal route daily. 16 g 3 9 08/26/19 25 Discontinu ed(Error) traMADol 50 MG tablet Take 50 mg by mouth every 8 (eight) hours as needed. 08/26/19 Discontinu ed(Error) pantoprazole EC 40 MG tablet Take 40 mg by mouth daily. 08/26/19 Discontinu ed(Error) gabapentin 100 MG capsule Take 1 capsule (100 mg total) by mouth 2 (two) times a day. 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 ([facility]) 12/15/2018 Environmental and seasonal allergies 10/08/2018 Chronic cough 10/08/2018 Abnormal finding on lung imaging 10/08/2018 Hypertension 10/10/2017 Stress incontinence 10/10/2017 Acute pharyngitis 06/29/2012 Vitamin B12 deficiency 06/13/2012 Herpes zoster 05/28/2012 Fatigue 04/26/2012 Migraine headache 04/26/2012 Resolved Problems Problem Noted Date Diagnosed Date Resolved Date Encounter for preventive health examination 04/17/2012 12/11/2019 Encounters Date Type Department Care Team Description 08/25/2024 12:33 PM CDT - 08/26/2024 2:45 PM CDT Hospital Encounter [facility] [place] [address] Ruby Song, Misael Ceja MD Tran, Isaac T, MD Shortness Of Breath Discharge Disposition: Home or Self Care (Routine Discharge) 08/25/2024 Travel from Last 3 Months Family History Medical History Relation Comments Heart Attack Father Hypertension Father Cancer Mother neoplasm of cervix Mother Relation Status Comments Father Mother Social History Tobacco Use Types Packs/Day Years Used Date Smoking Tobacco: Never Smokeless Tobacco: Never Alcohol Use Standard Drinks/Week Comments Yes 0 (1 standard drink = 0.6 oz pur e alcohol) B1300 Health Literacy Answer Date Recor ded How often do you need to hav e someone help you when you read instructions, pamphlets, or other written material from your doctor or pharmacy? Never 08/25/2024 [facility] Utilities Answer Date Recorded In the past 12 months has e [employer], [employer], oil, or water [employer] threatened to shut off services in your home? No 08/25/2024 Humiliation, Afraid, Rape, and Kick questionnair e Answer Date Recorded Within the last year, have y ou been afraid of your partner or ex-partner? No 08/25/2024 Within the last year, have y ou been humiliated or emotionally abused in other ways by your partner or ex-partner? No Within the last year, have y ou been kicked, hit, slapped, or otherwise physically hurt by your partner or ex-partner? No 08/25/2024 Within the last year, have y ou been raped or forced to have any kind of sexual activity by your partner or ex-partner? No 08/25/2024 Social Connection and Isolation Panel [NHANES] A nswer Date Recorded In a typical week, how many times do you talk on the phone with family, friends, or neighbors? Three times a week 08/25/2024 How often do you get togethe r with friends or relatives? Three times a week 08/25/2024 How often do you attend chur ch or jewish services? Never 08/25/2024 Do you belong to any clubs o r organizations such as voodoo groups, unions, fraternal or athletic groups, or school groups? No 08/25/2024 How often do you attend meet ings of the clubs or organizations you belong to? Never 08/25/2024 Are you , , di vorced, , never , or living with a partner? 08/25/2024 AUDIT-C Answer Date Recorded Q1: How often do you have a drink containing alc ohol? 2-4 times a month 08/25/2024 Q2: How many drinks containi ng alcohol do you have on a typical day when you are drinking? 5 or 6 08/25/2024 Q3: How often do you have si x or more drinks on one occasion? Monthly 08/25/2024 Overall Financial Resource Strain (CARDIA) Answe r Date Recorded How hard is it for you to pa y for the very basics like food, housing, medical care, and heating? Not hard at all 08/25/2024 PHQ-2 Answer Date Recorded Patient Health Questionnaire-2 Score 0 08/25/2024 [facility]ational Stress Questionnaire Answer Date Recorded Do you feel stress - tense, restless, nervous, or anxious, or unable to sleep at night because your mind is troubled all the time - these days? Not at all 08/25/2024 Exercise Vital Sign Answer Date Recorde d On average, how many days pe r week do you engage in moderate to strenuous exercise (like a brisk walk)? 4 days 08/25/2024 On average, how many minutes do you engage in exercise at this level? 50 min 08/25/2024 Hunger Vital Sign Answer Date Recorded Within the past 12 months, y ou worried that your food would run out before you got the money to buy more. Never true 08/26/19 25 Within the past 12 months, t he food you bought just didn't last and you didn't have money to get more. Never true 08/25/2024 PRAPARE - Transportation Answer Date Re corded In the past 12 months, has l ack of transportation kept you from medical appointments or from getting medications? No 07/31 In the past 12 months, has l ack of transportation kept you from meetings, work, or from getting things needed for daily living? No 08/25/2024 Housing Stability Vital Sign Answer Len e Recorded In the last 12 months, was t here a time when you were not able to pay the mortgage or rent on time? No 08/25/2024 In the past 12 months, how m any times have you moved where you were living? 0 08/25/2024 At any time in the past 12 m [facility], were you homeless or living in a fdc (including now)? No 08/25/2024 Comments No Sex and Gender Information Value Date Recorded Sex Assigned at Female 12/04/2023 7:53 AM CDT Legal Sex Female 7:49 PM CDT Gender Identity Female 12/04/2023 7:53 AM CDT Sexual Orientation Not on file Last Filed Vital Signs Vital Sign Reading Time Taken Comments Blood Pressure 140/68 08/26/2024 8:17 AM CDT Pulse 55 08/26/2024 8:17 AM CDT Temperature 36.8 C (98.2 F) 08/26/2024 8:17 AM CDT Respiratory Rate 22 08/26/2024 8:17 AM CDT Oxygen Saturation 100% 08/26/2024 8:17 AM CDT Inhaled Oxygen Concentration - - Weight 72.8 kg (160 lb 7.9 oz) 08/25/2024 12:17 PM CDT Height 167.6 cm (5' 6) 08/25/2024 12:17 PM CDT Body Mass Index 25.9 08/25/2024 12:17 PM CDT Plan of Treatment Health Maintenance Due Date Last Done Comments Colorectal Cancer Screening Colonoscopy (10 Years) 1959 Hepatitis C 1977 DTaP, Tdap and Td Vaccines ( 1 - Tdap) 1978 Pneumococcal Vaccine: 50+ Years (1 of 2 - PCV) 1978 Zoster Vaccines (1 of 2) 2009 RSV Immunization or 60+ Years (1 - Risk 60-74 years 1-dose series) 2019 COVID-19 Vaccine (3 - 2023-2 5 season) 2023 09/27/2020, 09/01/2020 Dexa Scan (General) 2024 Mammogram Screening 05/22/2024 [...] Procedure Name Priority Date/Time Associated Diagnosis Comments NM EXER NUC STRESS TEST 1 DAY W TRACING Routine 08/26/2024 11:54 AM CDT CARDIOLOGY STRESS TEST ONLY, EXERCISE Routine 08/26/2024 9:26 AM CDT USE ECHOCARDIOGRAM Today 08/26/2024 7: 55 AM CDT USV JACK DUPLEX LOW EXT SAMI STAT 08/26/2024 7:11 AM CDT LIPID PANEL Routine 08/26/2024 5:01 AM CDT HEMOGLOBIN, GLYCOSYLATED Routine 08/26/2024 5:01 AM CDT MAGNESIUM Routine 08/26/2024 5:01 AM CDT COMPREHENSIVE METABOLIC PANEL Routine 08/26/2024 5:01 AM CDT CBC W/DIFF AUTOMATED Routine 08/26/2024 5:01 AM CDT ECG 12-LEAD Routine 08/25/2024 7:13 PM CDT TROPONIN, QUANT STAT 08/25/2024 7:08 PM CDT TROPONIN, QUANT STAT 08/25/2024 4:24 PM CDT CTA CHEST PE PROTOCOL STAT 08/25/2024 2:40 PM CDT XR CHEST PORTABLE STAT 08/25/2024 1:0 2 PM CDT D-DIMER, QUANTITATIVE STAT 08/25/2024 12:42 PM CDT MAGNESIUM STAT 08/25/2024 12:42 PM CDT PRO-BRAIN NATRIURETIC PEPTIDE STAT 08/25/2024 12:42 PM CDT TROPONIN, QUANT STAT 08/25/2024 12:42 PM CDT COMPREHENSIVE METABOLIC PANEL STAT 08/25/2024 12:42 PM CDT CBC W/DIFF AUTOMATED STAT 08/25/2024 12:42 PM CDT ECG 12-LEAD Routine 08/25/2024 12:34 PM CDT MG SCREENING W EMRE SAMI DIGI Routine 05/22/2022 11:17 AM [employer] Encounter for screening mammogram for malignant neoplasm of breast from Last 3 Months or Most Recently Relevant to Health Maintenance Results * NM EXER NUC STRESS TEST 1 DAY W TRACING (08/26/2024 11:54 AM CDT) Anatomical Region Laterality Modality Cardiac Nuclear Medicine 08/26/2024 11:0 2 AM CDT Narrative 08/26/2024 1:51 PM CDT Myocardial Perfusion Imaging Pat.Name: STEPHIE MCCARTY Pat.ID: [id number] .Date: 08/26/2024 Refer.MD: Sandee Gracia [id number] Exam Time: 11:02:00 AM Study Type:TOMASA NC HT MUSCLE IMAGE SPECT MULTI Height: 66 in Weight: 160 lb BSA: 1.82 m2 Age: 12 1960,64Y Sex: F Sonogrphr: CHAN Navarro Pat. Stat.:Inpatient Room: CDU 4 Reason for Study:Shortness of breath, Fatigue History / Clinical:Hypertension, GERD Procedures: Nuclear Stress Test with Exercise Race: W Surgery: Cardiac Catheterization, Stress Echo, CTA ++++++++++++++++++++++++++++++++++++ SUMMARY: ++++++++++++++++++++++++++++++++++++ Stress conclusion: 1. Clinically positive for shortness of breath. 2. Electrocardiographically negative treadmill test for ischemia. 3. Adequate exercise capacity. 4. Helton Treadmill Score is 6, which indicates low risk. 5. Blood pressure response was normal. 6. Scintigraphic images to follow. Perfusion conclusion: 1. Good study quality. No motion correction was applied to images. No attenuation is noted. Prone imaging was performed. 2. Normal myocardial perfusion SPECT imaging. 3. Normal wall motion with an ejection fraction of 75%. 4. Stress test with myocardial perfusion imaging shows overall low risk for a cardiac event. ++++++++++++++++++++++++++++++++++++ FINDINGS: ++++++++++++++++++++++++++++++++++++ Protocol: The images were processed using the standard SPECT technique. A gated study was performed on the stress images. Impression: SPECT images demonstrate normal perfusion of normal intensity. Heart Size: The left ventricle is normal. LV Wall Motion: The LVEF is calculated to be 75%. Gated SPECT images reveal normal wall motion. Transient Ischemic Dilatation: The TID is 0.86. ++++++++++++++++++++++++++++++++++++ STRESS: ++++++++++++++++++++++++++++++++++++ Baseline Vital Signs: ECG: Sinus rhythm, PVC, bigeminy HR: 65 bmp Rest BP: 152/71 Treadmill Test Protocol: Porfirio Duration: 06:00 min:sec Max. Workload (METS): 7.1 Stress Test Results: Max HR: 147 bmp Target HR: 155 bmp % Target: 95 % Max BP: 168/81 Max RPP: 16280 O2 sat: 100 % Symptoms and Complications: Terminated: Attainment of adequate heart rate, Shortness of breath Symptoms: Shortness of breath Complications: None Stress ECG Interp: Sinus tachycardia <Electronic Signature> 08/26/2024 01:51 PM Sandee Grcaia M.D. Procedure Note Sandee Gracia MD - 08/26/2024 Myocardial Perfusion Imaging Pat.Name: STEPHIE MCCARTY Pat.ID: [id number] .Date: 08/26/2024 Refer.MD: Sandee Gracia [id number] Exam Time: 11:02:00 AM Study Type:TOMASA NC HT MUSCLE IMAGE SPECT MULTI Height: 66 in Weight: 160 lb BSA: 1.82 m2 Age: 12 1960,64Y Sex: F Sonogrphr: CHAN Navarro Pat. Stat.:Inpatient Room: CDU 4 Reason for Study:Shortness of breath, Fatigue History / Clinical:Hypertension, GERD Procedures: Nuclear Stress Test with Exercise Race: W Surgery: Cardiac Catheterization, Stress Echo, CTA ++++++++++++++++++++++++++++++++++++ SUMMARY: ++++++++++++++++++++++++++++++++++++ Stress conclusion: 1. Clinically positive for shortness of breath. 2. Electrocardiographically negative treadmill test for ischemia. 3. Adequate exercise capacity. 4. Helton Treadmill Score is 6, which indicates low risk. 5. Blood pressure response was normal. 6. Scintigraphic images to follow. Perfusion conclusion: 1. Good study quality. No motion correction was applied to images. No attenuation is noted. Prone imaging was performed. 2. Normal myocardial perfusion SPECT imaging. 3. Normal wall motion with an ejection fraction of 75%. 4. Stress test with myocardial perfusion imaging shows overall low risk for a cardiac event. ++++++++++++++++++++++++++++++++++++ FINDINGS: ++++++++++++++++++++++++++++++++++++ Protocol: The images were processed using the standard SPECT technique. A gated study was performed on the stress images. Impression: SPECT images demonstrate normal perfusion of normal intensity. Heart Size: The left ventricle is normal. LV Wall Motion: The LVEF is calculated to be 75%. Gated SPECT images reveal normal wall motion. Transient Ischemic Dilatation: The TID is 0.86. ++++++++++++++++++++++++++++++++++++ STRESS: ++++++++++++++++++++++++++++++++++++ Baseline Vital Signs: ECG: Sinus rhythm, PVC, bigeminy HR: 65 bmp Rest BP: 152/71 Treadmill Test Protocol: Porfirio Duration: 06:00 min:sec Max. Workload (METS): 7.1 Stress Test Results: Max HR: 147 bmp Target HR: 155 bmp % Target: 95 % Max BP: 168/81 Max RPP: 05611 O2 sat: 100 % Symptoms and Complications: Terminated: Attainment of adequate heart rate, Shortness of breath Symptoms: Shortness of breath Complications: None Stress ECG Interp: Sinus tachycardia <Electronic Signature> 08/26/2024 01:51 PM Sandee Gracia M.D. us Sandee Gracia MD [facility] Final Resul t * USE ECHOCARDIOGRAM (08/26/2024 7:55 AM CDT) Anatomical Region Laterality Modality Cardiac Echocardiogram 08/26/2024 7:13 AM CDT Narrative 08/26/2024 9:30 AM CDT Echocardiography Report Pat.Name: STEPHIE MCCARTY Pat.ID: [id number] St.Date: 08/26/2024 Exam Time: 7:13:00 AM Study Type:ECHO WITH CARDIAC DOPPLER COMP Height: 66 in Weight: 160 lb BSA: 1.82 m2 Age: 12 1960,64Y Sex: F BP: 138/90 HR: 54 bpm Sonogrphr: Marcy Vee Pat. Stat.:Inpatient Room: [facility] Reason for Study:Shortness of breath Procedures: 2D, M-mode, Doppler, Color Flow, The study quality is technically adequate. Race: W ++++++++++++++++++++++++++++++++++++ SUMMARY: ++++++++++++++++++++++++++++++++++++ The left ventricular size is normal. Estimated left ventricular ejection fraction is 55-60%. There is no left ventricular hypertrophy. Left ventricular diastolic function is normal. The right ventricular size is normal. Right ventricular systolic function is normal. The left atrial size is normal. Right atrial size is normal. The peak pulmonary artery systolic pressure is estimated to be approximately 22 mmHg. Mild to moderate aortic regurgitation. Mild to moderate mitral regurgitation. Mild tricuspid regurgitation. ++++++++++++++++++++++++++++++++++++ FINDINGS: ++++++++++++++++++++++++++++++++++++ LV: The left ventricular size is normal. Estimated left ventricular ejection fraction is 55-60%. There is no left ventricular hypertrophy. Left ventricular diastolic function is normal. WM: Wall motion appears normal in all segments. RV: The right ventricular size is normal. Right ventricular systolic function is normal. IVS: No evidence of ventricular septal defect. LA: The left atrial size is normal. RA: Right atrial size is normal. IAS: Atrial septum appears intact. FLIP: No evidence of pericardial effusion. AO: Normal aortic root. PA: The peak pulmonary artery systolic pressure is estimated to be approximately 22 mmHg. Estimated right atrial pressure of 3 mmHg. SVn: Inferior vena cava is normal. AV: No evidence of aortic valve stenosis. Mild to moderate aortic regurgitation. MV: Mild to moderate mitral regurgitation. No evidence of mitral stenosis. 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 PV: No evidence of pulmonic valve stenosis. Trace pulmonic regurgitation. TV: Mild tricuspid regurgitation. No evidence of tricuspid valve stenosis. ++++++++++++++++++++++++++++++++++++ MEASUREMENTS: ++++++++++++++++++++++++++++++++++++ DOPPLER LVOT LVOTpkPG 3 mmHg LVOTmnPG 2 mmHg LVOTpkVel 91.8 cm/s (70-110) LVOT SV 65 ml LVOT TVI 20.8 cm AV Forward Flow AV TVI 28.2 cm AV pkPG 5 mmHg AV pkVel 115 cm/s (100-170) Area (TVI) 2.32 cm2 (3-5)* AV mnPG 3 mmHg Area (Yang) 2.51 cm2 (3-5)* MV Forward Flow MV DeTm 218 msec MV E/A 1 MVA P1/2t 3.44 cm2 (4-6)* MV pkE 66.9 cm/s (60-130) MV P1/2t 64 msec (30-60)+* MV pkA 65.4 cm/s MV Regurg Flow MV pkPG 139 mmHg MV pkVel 590 cm/s (60-130)* PV Forward Flow PV pkVel 66.7 cm/s (60-90) PV AC 121 msec PV pkPG 2 mmHg RVOT RVOTpkV 43 cm/s TV Regurg Flow TV pkPG 19 mmHg TV pkVel 220 cm/s (30-70)* TV Forward Flow TV E/A 1.5 TV pkA 30.1 cm/s TV pkE 44.1 cm/s Lat E' Lat e 12.3 cm/s Lat E/E' Lat E/e 5.4 Med E' Med e 8.81 cm/s Med E/E' Med E/e 7.6 Aortic Valve Aortic Valve Ar 1.27 Aortic Valve Ve 0.8 PV Antegrade Flow Acceleration Sl 357 cm/s2 Right Atrium Iglesias's Disk 20 Right Ventricle Right Ventricle 10.7 cm/s 2D Left Ventricle LVIDd 4.5 cm (3.6-5.2) LV ESV 30 ml LVIDs 3 cm (2.3-3.9) LV ESV 40.2 ml LngAxd 8.07 cm LVESV BP 35.7 ml LngAxd 7.89 cm LV EF 61.4 % LV EDV 77.8 ml LV EF 58.6 % LV EDV 97.1 ml LV EF BP 59.2 % LVEDV BP 87.5 ml LV SV 47.8 ml LngAxs 6.94 cm LV SV 56.9 ml LngAxs 6.44 cm LV SV BP 51.8 ml LVPW LVPWd 0.8 cm Ventricular Septum IVSd 1 cm Left Atrium LA VOLBP 33 ml Aorta Ao Rtd 3.1 cm (zsc 1.2) Ao Asc 3.4 cm (zsc 3.6)* LVOT LVOT 2 cm LVOTArea 3.14 cm2 Ratios IVS LA Biplane LAVol I BP 18.1 ml/m2 RA Single Plane Right Atrium MO 10.4 mm Right Atrium Sy 28.4 ml Right Atrium Sy 40.8 mm Right Atrium Sy 15.6 ml/m2 Right Atrium Sy 11.9 cm2 Right Ventricle Right Ventricle 26 mm Right Ventricle 18 mm Major [place] 55 mm MMODE TA Tricuspid Annul 21.4 mm <Electronic Signature> 08/26/2024 09:30 AM Sandee Gracia M.D. Procedure Note Sandee Gracia MD - 08/26/2024 Echocardiography Report Pat.Name: STEPHIE MCCARTY Pat.ID: [id number] .Date: 08/26/2024 Exam Time: 7:13:00 AM Study Type:ECHO WITH CARDIAC DOPPLER COMP Height: 66 in Weight: 160 lb BSA: 1.82 m2 Age: 12 1960,64Y Sex: F BP: 138/90 HR: 54 bpm Sonogrphr: Marcy Vee Pat. Stat.:Inpatient Room: [facility] Reason for Study:Shortness of breath Procedures: 2D, M-mode, Doppler, Color Flow, The study quality is technically adequate. Race: W ++++++++++++++++++++++++++++++++++++ SUMMARY: ++++++++++++++++++++++++++++++++++++ The left ventricular size is normal. Estimated left ventricular ejection fraction is 55-60%. There is no left ventricular hypertrophy. Left ventricular diastolic function is normal. The right ventricular size is normal. Right ventricular systolic function is normal. The left atrial size is normal. Right atrial size is normal. The peak pulmonary artery systolic pressure is estimated to be approximately 22 mmHg. Mild to moderate aortic regurgitation. Mild to moderate mitral regurgitation. Mild tricuspid regurgitation. ++++++++++++++++++++++++++++++++++++ FINDINGS: ++++++++++++++++++++++++++++++++++++ LV: The left ventricular size is normal. Estimated left ventricular ejection fraction is 55-60%. There is no left ventricular hypertrophy. Left ventricular diastolic function is normal. WM: Wall motion appears normal in all segments. RV: The right ventricular size is normal. Right ventricular systolic function is normal. IVS: No evidence of ventricular septal defect. LA: The left atrial size is normal. RA: Right atrial size is normal. IAS: Atrial septum appears intact. FLIP: No evidence of pericardial effusion. AO: Normal aortic root. PA: The peak pulmonary artery systolic pressure is estimated to be approximately 22 mmHg. Estimated right atrial pressure of 3 mmHg. SVn: Inferior vena cava is normal. AV: No evidence of aortic valve stenosis. Mild to moderate aortic regurgitation. MV: Mild to moderate mitral regurgitation. No evidence of mitral stenosis. 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 PV: No evidence of pulmonic valve stenosis. Trace pulmonic regurgitation. TV: Mild tricuspid regurgitation. No evidence of tricuspid valve stenosis. ++++++++++++++++++++++++++++++++++++ MEASUREMENTS: ++++++++++++++++++++++++++++++++++++ DOPPLER LVOT LVOTpkPG 3 mmHg LVOTmnPG 2 mmHg LVOTpkVel 91.8 cm/s (70-110) LVOT SV 65 ml LVOT TVI 20.8 cm AV Forward Flow AV TVI 28.2 cm AV pkPG 5 mmHg AV pkVel 115 cm/s (100-170) Area (TVI) 2.32 cm2 (3-5)* AV mnPG 3 mmHg Area (Yang) 2.51 cm2 (3-5)* MV Forward Flow MV DeTm 218 msec MV E/A 1 MVA P1/2t 3.44 cm2 (4-6)* MV pkE 66.9 cm/s (60-130) MV P1/2t 64 msec (30-60)+* MV pkA 65.4 cm/s MV Regurg Flow MV pkPG 139 mmHg MV pkVel 590 cm/s (60-130)* PV Forward Flow PV pkVel 66.7 cm/s (60-90) PV AC 121 msec PV pkPG 2 mmHg RVOT RVOTpkV 43 cm/s TV Regurg Flow TV pkPG 19 mmHg TV pkVel 220 cm/s (30-70)* TV Forward Flow TV E/A 1.5 TV pkA 30.1 cm/s TV pkE 44.1 cm/s Lat E' Lat e 12.3 cm/s Lat E/E' Lat E/e 5.4 Med E' Med e 8.81 cm/s Med E/E' Med E/e 7.6 Aortic Valve Aortic Valve Ar 1.27 Aortic Valve Ve 0.8 PV Antegrade Flow Acceleration Sl 357 cm/s2 Right Atrium Iglesias's Disk 20 Right Ventricle Right Ventricle 10.7 cm/s 2D Left Ventricle LVIDd 4.5 cm (3.6-5.2) LV ESV 30 ml LVIDs 3 cm (2.3-3.9) LV ESV 40.2 ml LngAxd 8.07 cm LVESV BP 35.7 ml LngAxd 7.89 cm LV EF 61.4 % LV EDV 77.8 ml LV EF 58.6 % LV EDV 97.1 ml LV EF BP 59.2 % LVEDV BP 87.5 ml LV SV 47.8 ml LngAxs 6.94 cm LV SV 56.9 ml LngAxs 6.44 cm LV SV BP 51.8 ml LVPW LVPWd 0.8 cm Ventricular Septum IVSd 1 cm Left Atrium LA VOLBP 33 ml Aorta Ao Rtd 3.1 cm (zsc 1.2) Ao Asc 3.4 cm (zsc 3.6)* LVOT LVOT 2 cm LVOTArea 3.14 cm2 Ratios IVS LA Biplane LAVol I BP 18.1 ml/m2 RA Single Plane Right Atrium MO 10.4 mm Right Atrium Sy 28.4 ml Right Atrium Sy 40.8 mm Right Atrium Sy 15.6 ml/m2 Right Atrium Sy 11.9 cm2 Right Ventricle Right Ventricle 26 mm Right Ventricle 18 mm Major [place] 55 mm MMODE TA Tricuspid Annul 21.4 mm <Electronic Signature> 08/26/2024 09:30 AM Sandee Gracia M.D. us Carlee Isaac NP ECHO Final Resul t * USV JACK DUPLEX LOW EXT SAMI (08/26/2024 7:11 AM CDT) Anatomical Region Laterality Modality Extremity Vascular Ultraso und 08/26/2024 6:54 AM CDT Narrative 08/28/2024 9:41 PM CDT VENOUS DUPLEX IMAGING BILATERAL LOWER EXTREMITY VASCULAR LAB Pat.Name: STEPHIE MCCARTY Pat.ID: [id number] St.Date: 08/26/2024 Refer.MD: Ina Elizalde Exam Time: 6:54:00 AM Study Type:TOMASA VS Venous Duplex Legs SAMI Height: 66 in Age: 12 1960,64Y Sex: F Sonogrphr: Brayan Ez, [facility] Pat. Stat.:Outpatient History / Clinical:SOB, hx of left LE DVT Procedures: Ramírez scale, Color Doppler imaging, Doppler Spectral Analysis Race: W ++++++++++++++++++++++++++++++++++++ SUMMARY: ++++++++++++++++++++++++++++++++++++ Right leg: There are NO apparent, deep or superficial vein, ACUTE character venous filling defects visualized in the femoral, popliteal, deep calf or proximal saphenous veins. Resting venous flow is normal phasic proximally. Left leg: There are NO apparent, deep or superficial vein, ACUTE character venous filling defects visualized in the femoral, popliteal, deep calf or proximal saphenous veins. Chronic character scarring is noted in the left, femoral, popliteal veins. Resting venous flow is normal phasic proximally. CONCLUSION: No evidence of deep vein thrombosis in the right lower extremity. Chronic deep vein thrombosis in the left femoral and popliteal veins. <Electronic Signature> 08/28/2024 09:[address] M.D. Procedure Note Ramirez Lane MD - 08/28/2024 VENOUS DUPLEX IMAGING BILATERAL LOWER EXTREMITY VASCULAR LAB Pat.Name: STEPHIE MCCARTY Pat.ID: [id number] .Date: 08/26/2024 Refer.MD: Ina Elizalde Exam Time: 6:54:00 AM Study Type:TOMASA VS Venous Duplex Legs SAMI Height: 66 in Age: 12 1960,64Y Sex: F Sonogrphr: Brayan Ibarrason, [facility] Pat. Stat.:Outpatient History / Clinical:SOB, hx of left LE DVT Procedures: Ramírez scale, Color Doppler imaging, Doppler Spectral Analysis Race: W ++++++++++++++++++++++++++++++++++++ SUMMARY: ++++++++++++++++++++++++++++++++++++ Right leg: There are NO apparent, deep or superficial vein, ACUTE character venous filling defects visualized in the femoral, popliteal, deep calf or proximal saphenous veins. Resting venous flow is normal phasic proximally. Left leg: There are NO apparent, deep or superficial vein, ACUTE character venous filling defects visualized in the femoral, popliteal, deep calf or proximal saphenous veins. Chronic character scarring is noted in the left, femoral, popliteal veins. Resting venous flow is normal phasic proximally. CONCLUSION: No evidence of deep vein thrombosis in the right lower extremity. Chronic deep vein thrombosis in the left femoral and popliteal veins. <Electronic Signature> 08/28/2024 09:[address] M.D. Carlee Isaac NP [facility] Final Resul t * (ABNORMAL) HEMOGLOBIN, GLYCATED (08/26/2024 5:01 AM CDT) Pathologist [facility] HGB A1C 5.8(H) <5.7 % 08/26/2024 9:30 AM CDT [facility] Comment: ADA GUIDELINES 2010 5.7 TO 6.4% INCREASED RISK OF DIABETES > OR = 6.5% CONSISTENT WITH DIABETES ESTIMATED AVG GLUCOSE 120 mg/dL 08/26/2024 9:30 AM CDT [facility] 08/26/2024 5:0 1 AM CDT Carlee Isaac NP LABORATORY Final Resul t [facility] [address] [place] [address], [place] [phone] * (ABNORMAL) COMPREHENSIVE METABOLIC PANEL (08/26/2024 5:01 AM CDT) Only the most recent of2 resultswithin the time period is included. GLUCOSE 103(H) 70 - 99 MG/DL 08/26/2024 6:46 AM CDT [facility] BUN 14 7 - 18 MG/DL 08/26/2024 6:46 AM CDT [facility] CREATININE S/P/B 1.11(H) 0.55 - 1.02 MG/DL 08/26/2024 6:46 AM CDT [facility] SODIUM S/P/B 138 136 - 145 MMOL/L 08/26/2024 6:46 AM T [facility] POTASSIUM S/P/B 3.7 3.5 - 5.1 MMOL/L 08/26/2024 6:46 AM CDT [facility] CHLORIDE S/P/B 106 97 - 115 MMOL/L 08/26/2024 6:46 AM T [facility] CO2 27.2 21 - 32 MMOL/L 08/26/2024 6:46 AM CDT [facility] CALCIUM S/P/B 9.6 8.5 - 10.1 MG/DL 08/26/2024 6:46 AM T [facility] BILIRUBIN TOTAL S/P/B 0.4 0.2 - 1.2 MG/DL 08/26/2024 6:46 AM T [facility] Comment: THIS ASSAY IS NOT RECOMMENDED FOR PATIENTS UNDERGOING TREATMENT WITH ELTROMBOPAG DUE TO THE POTENTIAL FOR FALSELY ELEVATED RESULTS. TOTAL PROTEIN S/P/B 7.2 6.4 - 8.2 G/DL 08/26/2024 6:46 AM T [facility] ALBUMIN S/P/B 3.6 3.4 - 5.0 G/DL 08/26/2024 6:46 AM CDT [facility] AST 20 15 - 37 U/L 08/26/2024 6:46 AM CDT [facility] ALT 20 14 - 55 U/L 08/26/2024 6:46 AM T [facility] ALKALINE PHOSPHATASE S/P/B 63 50 - 136 U/L 08/26/2024 6:46 AM CDT [facility] ANION GAP 4.8 2 - 10 MMOL/L 08/26/2024 6:46 AM CDT [facility] BUN CREATININE RATIO 12.6 6 - 26 08/26/2024 6:46 AM CDT [facility] A/G RATIO 1.0 1.0 - 2.0 RATIO 08/26/2024 6:46 AM CDT [facility] GFR ESTIMATE 55(L) >90 ML/MIN/1.7 3 M2 08/26/2024 6:46 AM CDT [facility] Comment: NOTE: eGFR is not calculated for patients <18 years of age or gender unknown. This is an estimated GFR calculation using the new CKD EPI creatinine equation without race and so does not require a correction factor for race. This estimated GFR should not be used for calculating drug doses. 08/26/2024 5:01 AM CDT us Carlee Isaac NP LABORATORY Final Resul t [facility] [address] [place] [address], [place] [phone] * (ABNORMAL) LIPID PANEL (08/26/2024 5:01 AM CDT) CHOLESTEROL 242(H) <200 MG/DL 08/26/2024 6:40 AM CDT [facility] TRIGLYCERIDES 110 <150 MG/DL 08/26/2024 6:40 AM CDT [facility] HDL 94 >40.0 MG/DL 08/26/2024 6:40 AM CDT [facility] LDL (CALCULATED) 126(H) <100 MG/DL 08/26/2024 6:40 AM CDT [facility] NON HDL CHOLESTEROL 148(H) <130 MG/DL 08/26/2024 6:40 AM CDT [facility] CHOL/HDL RATIO 2.6 0.0 - 4.5 08/26/2024 6:40 AM CDT [facility] VLDL CALCULATION 22 5 - 55 MG/DL 08/26/2024 6:40 AM CDT [facility] LIPID INTERPRETATION 08/26/2024 6:40 AM CDT [facility] Comment: NIH CONCENSUS REPORT RECOMMENDATIONS: ADULT CHILD LOW RISK: CHOLESTEROL <200 <170 TRIGLYCERIDE <150 --- HDL >=60 --- LDL <100 <110 BORDERLINE: CHOLESTEROL 200-239 170-199 TRIGLYCERIDE 150-199 --- HDL 40-59 --- LDL 100-159 110-129 HIGH RISK: CHOLESTEROL >=240 >=200 TRIGLYCERIDE >=200 --- HDL <40 --- LDL >=160 >=130 08/26/2024 5:01 AM CDT us Carlee Isaac NP LABORATORY Final Resul t [facility] [address] [place] [address], [place] [phone] * CBC W/DIFF AUTOMATED (08/26/2024 5:01 AM CDT) Only the most recent of2 resultswithin the time period is included. WBC 5.18 4.5 - 11.0 x10'3/uL 08/26/2024 6:22 AM CDT [facility] RBC 4.55 4.20 - 5.40 x10'6/uL 08/26/2024 6:22 AM CDT [facility] HGB 13.6 12.0 - 16.0 G/DL 08/26/2024 6:22 AM CDT [facility] HCT 40.4 38.0 - 48.0 % 08/26/2024 6:22 AM CDT [facility] MCV 88.8 81.0 - 99.0 FL 08/26/2024 6:22 AM CDT [facility] MCH 29.9 27.0 - 31.0 PG 08/26/2024 6:22 AM CDT [facility] MCHC 33.7 32.0 - 36.0 G/DL 08/26/2024 6:22 AM CDT [facility] RDW 12.6 11.5 - 14.5 % 08/26/2024 6:22 AM CDT [facility] PLT 249 130 - 400 x10'3/uL 08/26/2024 6:22 AM CDT [facility] MPV 12.0 9.3 - 12.2 FL 08/26/2024 6:22 AM CDT [facility] DIFFERENTIAL TYPE AUTOMATED DIFFERENTIAL 08/26/2024 6:22 AM CDT [facility] NEUTROPHILS % 46.7 % 08/26/2024 6:22 AM T [facility] LYMPHOCYTES % 42.3 % 08/26/2024 6:22 AM CDT [facility] MONOCYTES % 7.7 % 08/26/2024 6:22 AM CDT [facility] EOSINOPHILS 2.3 % 08/26/2024 6:22 AM CDT [facility] BASOPHILS 0.8 % 08/26/2024 6:22 AM CDT [facility] IMMATURE GRANS % 0.2 % 08/27/19 6:22 AM CDT [facility] ABS. NEUTROPHILS 2.42 1.80 - 7.70 x10'3/uL 08/26/2024 6:22 AM CDT [facility] ABS. LYMPHOCYTES 2.19 1.00 - 4.80 x10'3/uL 08/26/2024 6:22 AM CDT [facility] ABS. MONOCYTES 0.40 0.24 - 0.86 x10'3/uL 08/26/2024 6:22 AM CDT [facility] ABS. EOSINOPHILS 0.12 0.04 - 0.36 x10'3/uL 08/26/2024 6:22 AM CDT [facility] ABS. BASOPHILS 0.04 0.01 - 0.08 x10'3/uL 08/26/2024 6:22 AM CDT [facility] ABS. IMMATURE GRANULOCYTES 0.01 0.00 - 0.49 x10'3/uL 08/26/2024 6:22 AM CDT [facility] 08/26/2024 5:01 AM CDT [facility] LABORATORY Final Resul t Performing Organization Address City/[facility]/ZIP Co de Phone Number [facility] [address] [place] [address], [place] [phone] * (ABNORMAL) MAGNESIUM (08/26/2024 5:01 AM CDT) Only the most recent of2 resultswithin the time period is included. MAGNESIUM 2.5(H) 1.8 - 2.4 MG/DL 08/26/2024 6:46 AM CDT [facility] 08/26/2024 5:01 AM [facility] [address] [place] [address], * ECG 12 lead (08/25/2024 7:13 PM CDT) Only the most recent of2 resultswithin the time period is included. 08/25/2024 7:13 PM CDT Narrative [facility] - 08/26/2024 6:[address] [facility] [address] Test Date: 2024-08-25 Pat Name: STEPHIE MCCARTY Department: 41 Room: [place] [address] Gender: Female Rn Ccu: : 1960 Requested By: MISAEL SANTAMARIA Order Number: [id number] Reading MD: Mesfin Gao Measurements Intervals [place] Rate: 60 P: 51 KS: 155 QRS: 46 QRSD: 88 T: 67 QT: 429 QTc: 430 Interpretive Statements SINUS RHYTHM Compared to ECG 08/25/2024 12:34:01 Sinus bradycardia no longer present Procedure Note Mesfin Gao MD - 08/26/2024 [facility] [address] Test Date: 2024-08-25 Pat Name: STEPHIE MCCARTY Department: 41 Room: [place] [address] Gender: Female Rn Ccu: : 1960 Requested By: MISAEL SANTAMARIA Order Number: [id number] Reading : Mesfin Gao Measurements Intervals [place] Rate: 60 P: 51 KS: 155 QRS: 46 QRSD: 88 T: 67 QT: 429 QTc: 430 Interpretive Statements SINUS RHYTHM Compared to ECG 08/25/2024 12:34:01 Sinus bradycardia no longer present us Misael Santamaria MD ECG ORDERABLES Final Result [facility] * TROPONIN, QUANT (08/25/2024 7:08 PM CDT) Only the most recent of3 resultswithin the time period is included. TROPONIN I HIGH SENSITIVITY 5 <54 ng/L 08/25/2024 7:42 PM CDT [facility] Comment: HIGH DOSES OF BIOTIN, TROPONIN-SPECIFIC AUTOANTIBODIES, AND ANTIBODY THERAPY CONTAINING HAMA MAY INTERFERE WITH THIS TEST RESULT. CORRELATION TO CLINICAL HISTORY AND PRESENTATION RECOMMENDED. 08/25/2024 7:08 PM CDT Carlee Isaac NP LABORATORY Final Resul t [facility] [address] [place] [address], [place] [phone] * CTA CHEST PE PROTOCOL (08/25/2024 2:40 PM CDT) Anatomical Region Laterality Modality Chest Computed Tomogra phy 08/25/2024 3:26 PM CDT Impressions 08/25/2024 3:32 PM CDT Impression: 1. No CTA imaging findings for pulmonary embolism. Findings seen to provide a potential 2. Bilateral lung base minimal dependent and streaky subsegmental atelectasis; no acute other significant cardiopulmonary to provide a possible explanation for the patient's symptoms 3. Thoracic spine dextrocurvature and ventral endplate degenerative spurring. 4. Small sliding hiatal hernia. Ordered By: LIO HINES Interpreted By: Miguel Ángel Escalante MD, 08/25/2024 3:26 PM Narrative 08/25/2024 3:32 PM CDT [facility] [address] [place], [place] [address] Exam: CT angiography chest Exam Date/Time: 08/25/2024 2:34 PM Indication: 64 female. Evaluation for pulmonary embolism Progressive dyspnea with exertion. Comparison: Chest x-ray 08/25/2024 and 04/29/2019 Technique: Computed tomography angiography of the chest was performed no protocol following uneventful intravenous administration of 80 mL Isovue-370 contrast. 3-D reconstructions and postprocessing performed on a separate dedicated 3-D workstation.. A dose lowering technique was used for this procedure, which may include, but is not limited to, dose reduction technique, automated exposure control, the use of iterative reconstruction, and ALARA (As Low As Reasonably Achievable) / Image Gently techniques. CTA Findings: VASCULATURE Adequate opacification of pulmonary arterial tree. There are no intraluminal filling defects suggestive of pulmonary thromboembolism identified through the first order subsegmental pulmonary artery branch level.. No findings for pulmonary hypertension. No central pulmonary arterial enlargement. Unremarkable thoracic aorta. MEDIASTINUM Support tubes and lines: None. Base of neck/thyroid: Negative. Heart: Normal in size. No pericardial effusion. Lymph nodes: No supraclavicular, axillary, internal mammary, mediastinal, or hilar adenopathy. LUNGS AND PLEURA Lungs: Bilateral lung base dependent and streaky minimal subsegmental atelectasis. No consent pulmonary nodule, mass or consolidation. No other acute or significant chronic airspace finding. Central airways are clear. No evidence thickening or mucous plugging Pleura: No pleural effusion, thickening, or calcification. UPPER ABDOMEN Small sliding hiatal hernia. Otherwise unremarkable upper abdomen. No acute finding. BONES/SOFT TISSUES Normal bone density. Thoracic spine mild/moderate dextrocurvature and multilevel predominantly ventral endplate degenerative spurring. No concerning focal finding.. Procedure Note Miguel Ángel Escalante MD - 08/25/[address] [address] Exam: CT angiography chest Exam Date/Time: 08/25/2024 2:34 PM Indication: 64 female. Evaluation for pulmonary embolism Progressivedyspnea with exertion. Comparison: Chest x-ray 08/25/2024 and 04/29/2019 Technique: Computed tomography angiography of the chest was performed noprotocol following uneventful intravenous administration of 80 mLIsovue-370 contrast. 3-D reconstructions and postprocessing performed hedy separate dedicated 3-D workstation.. A dose lowering technique was usedfor this procedure, which may include, but is not limited to, dosereduction technique, automated exposure control, the use of iterativereconstruction, and ALARA (As Low As Reasonably Achievable) / Image Gentlytechniques. CTA Findings: VASCULATURE Adequate opacification of pulmonary arterial tree. There are nointraluminal filling defects suggestive of pulmonary thromboembolismidentified through the first order subsegmental pulmonary artery branchlevel.. No findings for pulmonary hypertension. No central pulmonaryarterial enlargement. Unremarkable thoracic aorta. MEDIASTINUM Support tubes and lines: None. Base of neck/thyroid: Negative. Heart: Normal in size. No pericardial effusion. Lymph nodes: No supraclavicular, axillary, internal mammary, mediastinal,or hilar adenopathy. LUNGS AND PLEURA Lungs: Bilateral lung base dependent and streaky minimal subsegmentalatelectasis. No consent pulmonary nodule, mass or consolidation. No otheracute or significant chronic airspace finding. Central airways are clear. No evidence thickening or mucous plugging Pleura: No pleural effusion, thickening, or calcification. UPPER ABDOMEN Small sliding hiatal hernia. Otherwise unremarkable upper abdomen. Noacute finding. BONES/SOFT TISSUES Normal bone density. Thoracic spine mild/moderate dextrocurvature andmultilevel predominantly ventral endplate degenerative spurring. Noconcerning focal finding.. Impression: 1. No CTA imaging findings for pulmonary embolism. Findings seen toprovide a potential 2. Bilateral lung base minimal dependent and streaky subsegmentalatelectasis; no acute other significant cardiopulmonary to provide apossible explanation for the patient's symptoms 3. Thoracic spine dextrocurvature and ventral endplate degenerativespurring. 4. Small sliding hiatal hernia. Ordered By: LIO HINES Interpreted By: Miguel Ángel Escalante MD, 08/25/2024 3:26 PM us Lio Hines PA-Lexie CT Final Resul t * XR CHEST PORTABLE (08/25/2024 1:02 PM CDT) Anatomical Region Laterality Modality Chest Radiographic Ella ging 08/25/2024 1:03 PM CDT Impressions 08/25/2024 1:06 PM CDT Impression: No acute findings. Referred By: Interpreted By: Mayank Holcomb MD, 08/25/2024 1:03 PM Narrative 08/25/2024 1:06 PM CDT [place] [address] Examination: Chest 1 view portable History: Shortness of breath DATE/TIME: 08/25/2024 12:44 PM Comparison: None Technique: AP upright portable view of the chest was obtained. Findings: Heart size, mediastinal contours and pulmonary vasculature are within normal limits. No pulmonary consolidation, pleural effusion or pneumothorax. Thoracic scoliosis. No acute osseous abnormality. Procedure Note Mayank Holcomb MD - 08/25/2024 [place] [address] Examination: Chest 1 view portable History: Shortness of breath DATE/TIME: 08/25/2024 12:44 PM Comparison: None Technique: AP upright portable view of the chest was obtained. Findings: Heart size, mediastinal contours and pulmonary vasculature arewithin normal limits. No pulmonary consolidation, pleural effusion orpneumothorax. Thoracic scoliosis. No acute osseous abnormality. Impression: No acute findings. Referred By: Interpreted By: aMyank Holcomb MD, 08/25/2024 1:03 PM Lio Hines PA-C GENERAL IMAGING Final Resul t * (ABNORMAL) PRO-BRAIN NATRIURETIC PEPTIDE (08/25/2024 12:42 PM CDT) PRO-B TYPE NATRIURETIC PEPTIDE 321(H) <125 PG/ML 08/25/2024 1:33 PM CDT [facility] Comment: CUT POINTS ESTABLISHED BY INTERNATIONAL COLLABORATIVE ON NT PROBNP (ICON) STUDY (2006). AGE INDEPENDENT: <300 PG/ML HAS A 99% NEGATIVE PREDICTIVE VALUE FOR EXCLUDING ACUTE CHF <50 YEARS: >450 PG/ML IS CONSISTENT WITH ACUTE CHF 50-75 YEARS: >900 PG/ML IS CONSISTENT WITH ACUTE CHF >75 YEARS: >1800 PG/ML IS CONSISTENT WITH ACUTE CHF IN PATIENTS WITH RENAL INSUFFICIENCY (GFR <60), >1200 PG/ML YIELDS A DIAGNOSTIC SENSITIVITY AND SPECIFICITY OF 89% AND 72% FOR ACUTE CHF. 08/25/2024 12:4 2 PM CDT us Lio Hines PA-C LABORATORY Final Resul t Performing Organization Address [facility] Co de Phone Number [facility] [address] [place] [address], * (ABNORMAL) D-DIMER, QUANTITATIVE (08/25/2024 12:42 PM CDT) D-DIMER 949(HH) 0 - 500 ng{FEU}/mL 08/25/2024 1:48 PM CDT [facility] Comment: D-Dimer values less than or equal to 500 ng/mL FEU have a negative predictive value of >95% for exclusion of deep vein thrombosis and pulmonary embolism. In patients over 50 (who tend to have higher normal baseline D-Dimer values), recent studies suggest age-adjusted D-Dimer cutoff values (calculated as: age [years] x 10 ng/mL) result in equivalent outcomes and no additional false negative findings. Successful Call: DDIMR called 08/25/2024 01:48 PM to EMERGENCY ROOM (Simon/SUYAPA BUNDY) by [id number]. Read Back: Yes 08/25/2024 12:4 2 PM CDT us Lio Hines PA-C LABORATORY Final Resul t [facility] [address] [place] [address], [place] [phone] * MG SCREENING W EMREJack RAMIREZ (05/22/2022 11:17 AM LIVESTOCK JUDGING COACH) Anatomical Region Laterality Modality Breast Bilateral Mammography 05/22/2022 4:16 PM LIVESTOCK JUDGING COACH Narrative 05/22/2022 4:20 PM LIVESTOCK JUDGING COACH IMAGING STUDIES: Bilateral screening mammograms with computer-aided [...] Most Recently Relevant to Health Maintenance [place] [address] [place] [address] MEDICARE PART A Advance Directives * Full Code (Latest Code Status on File) Date Activated Date Inactivated Comments 08/25/2024 4:16 PM 08/26/2024 4:50 PM Care Teams Candles Pourer Relationship Specialty Start Date End Date Ina Elizalde PA [address] [place] [address] PCP - General PHYSICIAN STEAM CONDITIONER FILLING 05/22/22
--- OUTSIDE RECORDS SUMMARY | 2024-09-17 00:42 | XMS_ITS | Clinical Summary ---
Author Organization [facility] Address [address] [place] [address] Care Team Providers Care Regional Clinical Research Associate Name Role Phone Compa Huggins MD Primary Care Provider [phone] Akin Obrien MD Unavailable [phone] Allergies Active Allergy Reactions Criticality Noted Date Comments Sulfa (Sulfonamide Antibiotics) Hives Medium Medications mirabegron ER (MYRBETRIQ) 50 mg tablet extended release 24 hr Take 50 mg by mouth centrifugal operator before breakfast. Active estradiol (ESTRACE) 1 mg tablet Take 1 mg by mouth centrifugal operator before breakfast. Active losartan (COZAAR) 50 mg tablet Take 50 mg by mouth centrifugal operator before breakfast. Active calcium carbonate-vitam in D3 600mg (1,500mg) -1,000 unit capsule Take 1 capsule by mouth centrifugal operator before breakfast. Active loratadine 10 mg capsule Take 10 mg by mouth centrifugal operator before breakfast. Active potassium 99 mg tablet Take 1 tablet by mouth centrifugal operator before breakfast. Active magnesium oxide (MAG-OX) 250 mg (150.8 mg elemental) tabletIndicatio ns:hypomagnesem ia Take 250 mg by mouth centrifugal operator before breakfast. 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 Gender Identity Not on file Sexual Orientation [...] on file Medical Devices Implanted Type Area Business Process Analyst Device Identifier Shelf Expiration Date Model / Serial / Lot [employer] [id number] Obtryx Ii Precisionblue Advantage .15mm 22cm Sling Halo Needle - [id number] Implanted:Qty: 1 on 10/15/2017 by Casa Velasquez MD at [facility] N/A: Urethra [employer] 08/19/2020 [id number] / / [id number] Insurance [facility] CHO[facility] PLUS [facility] PPO [employer] HMO [facility] CHO[facility] PLUS Care Teams Regional Clinical Research Associate Relationship Specialty Start Date End Date Compa Huggins MD [facility] [place] [address] PCP - General 04/25/17 Akin Obrien MD [address] [place] [address] [place] [address] Surgeon Surgery 10/17/20
--- OUTSIDE RECORDS SUMMARY | 2024-09-17 00:42 | XMS_ITS | Encounter Summary ---
Author Organization [facility] Address [address] [place] [address] Care Team Providers Care Workers Compensation Claims Adjuster Name Role Phone Ina Elizalde Primary Care Provider [phone] Encounter Details Date Type Department Care Team (Late st Contact Info) Description 06/13/2022 [employer] Message [facility] Patient Accounts [address] [place], [place] [id number] [facility] Provider UNINSURED Social History Tobacco Use Types [...] Coronavirus/COVID-19? No / Unsure 05/22/2022 10:55 AM FLEXO OPERATOR documented as of this encounter Plan of Treatment Not on file documented as of this encounter Visit Diagnoses Not on filedocumented in this encounter Care Teams Workers Compensation Claims Adjuster Relationship Specialty Start Date End Date Ina Elizalde PA [facility] [place] [address] PCP - General PHYSICIAN GRAB JACK MAN 05/22/22 documented as of this encounter
--- NOTE | 2024-09-17 07:46 | P.SS_ITS ---
Same Day Admit/Disch: HPI History of Present Illness Chief complaint: Lt Ing Hernia Narrative: Raquel Mccarty is a 64 year old female who noticed a bulge in the left groin back in early June. This seemed to get a little larger and is occasionally uncomfortable. She was seen in the office and found to have a reducible left inguinal hernia. No right inguinal hernia was noted. Patient has had several abdominal surgeries including 3 sections, 1 removal of ovarian cyst, and TAHBSO. After discussion, she is taken to surgery now for robotic laparoscopic repair of her left inguinal hernia. [facility] Past Medical History Medical History GERD (gastroesophageal reflux disease) Hx of blood clots Cataract Preoperative clearance Annual physical exam Thyroid disorder screening Acute sinusitis Scoliosis Lumbar spondylosis Sciatica Lumbar pain left lower back Gastric ulcer Acute blood loss anemia GIB (gastrointestinal bleeding) Melena Depression Essential (primary) hypertension Surgical History Surgical History S/P IVC filter removed 2020 History of removal of ovarian cyst 1982 History of abdominal hysterectomy Uterus 1998 Ovaries 2009 Previous section 1983 1986 1988 Family History Family History Father Hypertension Family history of cardiovascular disease Cancer Heart disease Mother Family history of malignant neoplasm of cervix Cancer Sibling Cancer Heart disease Hypertension Cerebrovascular accident Grandparent Cancer Hypertension Social History Social History Social History: 08/05/24 very confident with medical forms Smoking status: Never smoker Alcohol intake: current Drinks per week: 2 Alcohol use details: 24 in a month during camping seasons Substance use: never Substance use type: does not use Do You Feel Safe in your Home?: Yes Lack of Transportation: No Lack of Food: Never True Current Housing: I Have Housing Concerned About Future Housing: No Difficulty Paying Gas/Electric Bills: No Difficulty Paying for Meds: No Currently Unemployed: No Education: High School Diploma/GED Difficulty w/ Childcare or Family Care: No Living arrangements: with family Additional living arrangements comments: Gender identity (if verbalized by the patient): Female Spiritual care concerns: No Same Day Admit/Disch: Med Pre-admit Medications Home Medications ?Medication ?Instructions ?Recorded ?Confirmed ?Type ibuprofen 800 mg tablet 800 mg PO TID PRN pain #90 tabs 09/12/23 09/16/24 Rx amlodipine 5 mg tablet 5 mg PO DAILY #90 tabs 08/04/24 09/17/24 Rx omeprazole 20 mg capsule,delayed 20 mg PO DAILY 09/16/24 09/16/24 History release oxycodone-acetaminophen 5 mg-325 1 - 2 tablet PO Q6H PRN pain #20 09/17/24 Rx mg tablet (Percocet) tabs Review of Systems Review of Systems All systems reviewed & are unremarkable except as noted in HPI and below (HPI) Exam Const: General: comfortable, no acute distress, alert and awake HENMT: Head: normocephalic and atraumatic Mouth: Yes Normal oral and palatal mucosa present Eyes: Conjunctivae: conjunctivae normal Pupils: Equal, round and reactive pupils present EOM: EOMs intact bilaterally Neck: Neck: normal visual inspection, no lymphadenopathy and nontender Resp: Effort & Inspection: normal respiratory effort Auscultation: clear to auscultation bilaterally Cardio: Rate: regular rate Rhythm: regular rhythm Heart sounds: no gallops, no murmurs and no rubs GI: Inspection: non-distended and visible herniation (Left groin) GI Palp: Yes Soft to palpation, No Tenderness to palpation present (GI), No Hepatomegaly present, No Splenomegaly present and Yes Hernia present (Reducible left inguinal hernia) Skin: Lesions: no lesions Rashes: no rashes Neuro: General: no focal motor deficits and CN's II-XI intact bilaterally Cranial nerves: Yes Equal, round and reactive pupils present, Yes Bilaterally intact EOM present, Yes facial symmetry and Yes Midline tongue present Speech: normal speech Motor exam (neuro): 5/5 motor strength present throughout and Motor abnormalities not present Extrem: General: no clubbing, cyanosis or edema and edema Psych: Affect: normal affect Thought process: Normal thought process present Insight: Good insight present (Psych) DS: Summary Time Spent with Patient Time attestation: Total time spent providing and/or coordinating discharge services: DS: Admitting Diagnosis Discharge Date September 17, 2024 Admitting Diagnosis * Left inguinal hernia-after discussion, plan to proceed with robotic laparoscopic repair with mesh. The procedure, risks, benefits, alternatives, have been discussed. The usual length of the surgery as well as the length of recovery have been discussed. The use of mesh has been discussed. All questions were answered. Patient understands and agrees to go ahead. * Abdominal adhesions-multiple pelvic surgeries, this will likely increase the risk and length of time the surgery will take to perform. * Essential hypertension-on medication. DS: Discharge Diagnosis Discharge Diagnosis (1) Left inguinal hernia: Code(s): K40.90 - Unilateral inguinal hernia, without obstruction or gangrene, not specified as recurrent Status: Acute Assessment and Plan: Robotic laparoscopic repair left inguinal hernia with mesh performed 09/17/[address] Hollis. Patient had multiple abdominal adhesions. (2) Abdominal adhesions: Code(s): K66.0 - Peritoneal adhesions (postprocedural) (postinfection) Status: Acute Discharge Plan Discharge Patient Disposition: Home Discharge Instructions: 1. May shower the day after surgery over incisions. 2. Call office for: -Wound increasingly painful or bleeding -Vomiting -Fever of greater than 101 degrees 3. Expect some blood on dressing and old blood on skin. 4. If no bowel movement for three days, take 1 oz. (30 ml) Milk of Magnesia, if no results, take Fleets enema. 5. No heavy lifting > 15-20 pounds for 2 weeks. 6. No driving for 3 days or while taking narcotic pain medications. 7. Up walking 10-30 minutes three times per day. 8. Resume previous home medications. 9. Follow-up 10-14 days in office for wound check or as previously scheduled. 10. Oral pain medications prescription to be sent home with patient. 11. NUTRITION: Start out by drinking fluids and increase your diet as tolerated. If you experience nausea, try dry toast, crackers, and 7-UP. If nausea or vomiting persists, contact your surgeon?s office. Patient Language: Citizen Of [place] Stand Alone Forms: General Discharge Instructions Follow-up/Referrals: José Miguel Hollis MD [Physician] - 2 Weeks Discharge Medications: New oxycodone-acetaminophen [Percocet] 5-325 mg tablet 1 - 2 tablet PO Q6H PRN (Reason: pain) Qty: 20 0RF Continued omeprazole 20 mg capsule,delayed release(DR/EC) 20 mg PO DAILY ibuprofen 800 mg tablet 800 mg PO TID PRN (Reason: pain) Qty: 90 1RF Patient Comments: rarely ever takes only prn not used it in weeks amlodipine 5 mg tablet 5 mg PO DAILY Qty: 90 0RF
[2024-09-17] MEDS: KETOROLAC 15 MG/ML VIAL (*BKC) IV PUSH (11:00)
[2024-09-17] MEDS: ACETAMINOPHEN 500 MG TABLET 1000 MG PO (11:00)
[2024-09-17] MEDS: LACTATED RINGERS 1,000 ML 30 ML IV CONT ×3 (11:00→15:25)
--- NOTE | 2024-09-17 11:02 | P.PNAN_ITS ---
Anes - Initial Pre Proc Eval Procedure: Operation Date: 09/17/24 12:00 Proposed Procedures p Robotic Repair Left Inguinal Hernia with Mesh - José Miguel Hollis MD Date/Time: 09/17/24 11:02 Surgeon: José Miguel Hollis MD Pre Op Diagnosis: Lt Ing Hernia Patient Data Age: 64 Gender: F Height: 1.7 m Weight: 73 kg Allergies Allergy/AdvReac Type Severity Reaction Status Date / Time Sulfa (Sulfonamide Allergy Unknown Hives Verified 09/16/24 08:56 Antibiotics) Home Medications ?Medication ?Instructions ?Recorded ?Confirmed ?Type ibuprofen 800 mg tablet 800 mg PO TID PRN pain #90 tabs 09/12/23 09/16/24 Rx amlodipine 5 mg tablet 5 mg PO DAILY #90 tabs 08/04/24 09/16/24 Rx omeprazole 20 mg capsule,delayed 20 mg PO DAILY 09/16/24 09/16/24 History release Patient hx anesthesia problems: none Family hx anesthesia problems: none Results Review: All pre-operative results and documents have been reviewed as part of the pre- operative evaluation. [facility] Past Medical History Medical History GERD (gastroesophageal reflux disease) Hx of blood clots Cataract Preoperative clearance Annual physical exam Thyroid disorder screening Acute sinusitis Scoliosis Lumbar spondylosis Sciatica Lumbar pain left lower back Gastric ulcer Acute blood loss anemia GIB (gastrointestinal bleeding) Melena Depression Essential (primary) hypertension Surgical History Surgical History S/P IVC filter removed 2020 History of removal of ovarian cyst 1982 History of abdominal hysterectomy Uterus 1998 Ovaries 2008 Previous section 1983 1986 1988 Family History Family History Father Hypertension Family history of cardiovascular disease Cancer Heart disease Mother Family history of malignant neoplasm of cervix Cancer Sibling Cancer Heart disease Hypertension Cerebrovascular accident Grandparent Cancer Hypertension Social History Social History Social History: 08/05/24 very confident with medical forms Smoking status: Never smoker Alcohol intake: current Drinks per week: 2 Alcohol use details: 24 in a month during camping seasons Substance use: never Substance use type: does not use Do You Feel Safe in your Home?: Yes Lack of Transportation: No Lack of Food: Never True Current Housing: I Have Housing Concerned About Future Housing: No Difficulty Paying Gas/Electric Bills: No Difficulty Paying for Meds: No Currently Unemployed: No Education: High School Diploma/GED Difficulty w/ Childcare or Family Care: No Living arrangements: with family Additional living arrangements comments: Gender identity (if verbalized by the patient): Female Spiritual care concerns: No Anes - Eval Final PreProcedure Day of Procedure 09/17/24 11:02 Patient weight: overweight Heart: regular rate and rhythm Lungs: clear to auscultation Airway: Mallampati scale class 1 Neurological: alert and oriented Last oral intake: >/= 8 hours ASA classification: III Emergent: no Anesthetic plan: proceed Anesthesia type and monitoring: general ETT and standard monitoring Results Review: All pre-operative results and documents have been reviewed as part of the pre- operative evaluation. Informed Consent: The patient's anesthetic plan and its attendant risks and benefits were discussed with the patient/family/POA. Questions were solicited and answers provided to the satisfaction of the patient/family/POA.
--- NOTE | 2024-09-17 11:25 | WPDHPUPDATE1 ---
History and Physical Update Update Date/Time: 09/17/24 11:25 History and Physical has been reviewed, including an updated exam of the patient. There are NO changes in the patient's condition. Risks, benefits, and alternatives have been discussed and questions answered. Patient agrees to proceed with procedure.
[2024-09-17] MEDS: ceFAZolin 2 GM/D5W 50 ML 2 GM/50 ML BAG IVPB (11:55)
[2024-09-17] MEDS: BUPIVACAINE/EPINEPHRINE 0.5% 50 ML VIAL 30 ML INFILTRATE (12:31)
[2024-09-17] MEDS: ONDANSETRON INJ 4 MG/2 ML VIAL IV PUSH (14:56)
[2024-09-17] MEDS: diphenhydrAMINE HCl INJ 50 MG/ML VIAL 12.5 MG IV PUSH ×2 (15:08→15:30)
[2024-09-17] MEDS: SCOPOLAMINE 1 MG PATCH 1 PATCH TRANSDERM (15:31)
--- NOTE | 2024-09-17 15:56 | W.PM.PROC2 ---
Procedure Note - Detailed Date of Procedure 09/17/24 Pre-op Diagnosis Lt Ing Hernia, abdominal adhesions Post-op Diagnosis Same Procedure Performed Robotic laparoscopic adhesiolysis, robotic laparoscopic repair of left inguinal hernia with mesh Surgeon José Miguel Hollis MD Delinquency Counselor Stanley Looney PROFESSOR OF ANTHROPOLOGY Anesthesia General and Local Indications Patient has noticed a bulge in the left groin since early June. This seems to be getting larger and is occasionally uncomfortable. She was seated in the office and found to have a left inguinal hernia. She is taken to surgery now for robotic laparoscopic repair with mesh Findings This was an indirect hernia. There were extensive anterior abdominal wall adhesions of small intestine, omentum, intestinal mesentery. The peritoneum overlying the inguinal structures was heavily scarred and tissue planes were skewed due to her multiple previous pelvic surgeries. Blood loss was increased due to the scar tissue associated with dissection in the inguinal canal. No bleeding at all was associated with taking down the numerous abdominal wall adhesions. Description of Procedure Patient was taken to surgery and induced into general anesthesia. The entire abdomen was prepped and draped. Trocars were placed in the usual fashion across the upper abdomen starting in the left subcostal position. The remaining trocars were placed under direct visualization. Care was taken to avoid the anterior abdominal wall adhesions which came almost up to the trocars. When the robotic trocars were in place, patient was placed in Trendelenburg. The robot was brought into the field and the camera was docked. Camera was targeted and the operating instruments were then placed and positioned. The surgeon then went to the robotic console. The 1st 45 minutes of this nearly to our surgery was then carried out taking down all the adhesions to the anterior abdominal wall. These were nearly all small bowel adhesions. Those in the midline were quite dense. Great care was taken freeing these adhesions. In areas of the small intestine where the adhesions were particularly dense, the corresponding area of abdominal wall was removed rather than risk an enterotomy. Adhesiolysis was continued until all the adhesions were down. I recheck the intestine during the adhesiolysis and after the adhesiolysis to ensure there was no enteric leak or bleeding. None was seen. I then proceeded with the left inguinal hernia repair. An anterior peritoneal incision was started about the level of the IS. This was started laterally and proceeded medially over to the remnant of the median umbilical ligament. As I mentioned the entire inguinal dissection was with heavily scarred peritoneum and much more bloody than usual. Also the scarred peritoneum did not have the integrity or elasticity it would have without prior surgery. A few tears or holes in the peritoneum occurred. None the less we were able to per severe and dissect the peritoneum off the lateral abdominal wall and dissect medially just under the left rectus muscle. This posterior rectus dissection was then carried down to Jonel's ligament. This dissection was also much more bloody than usual. I was able to dissect Jonel's ligament and dissect medially to expose the pubis. The midline dissection was continued anteriorly so that we dissected even on the medial aspect of the right rectus muscle creating a space just beyond the pubis for our mesh to be placed. I then went to the area of the indirect inguinal hernia. Gentle traction was placed and I divided the transversalis sling on the anterior aspect of the sac. Gradually I was able to reduce the sac entirely. It was intimately attached to the round ligament. But I got to the into the hernia sac, I cauterized and a wide it the round ligament. I then continued dissecting the hernia sac off the inguinal structures and wall so that there would be ample room for mesh placement. I then continued dissection on Jonel's ligament proceeding laterally and dissecting posterior to Jonel's ligament to the obturator plug. 16 x 10 cm large left mid 3DMax mesh was then introduced into the peritoneal cavity. I positioned this over the inguinal canal structures appropriately. I then used 3-0 Vicryl suture and secured the mesh to Jonel's ligament. I used 2 additional 3-0 Vicryl sutures and secured the anterior aspect of the mesh both on the medial and lateral side. The mesh was now in place and appeared to be in very good position. I closed the peritoneal defect with running 3-0 V lock suture. The peritoneum was quite fragile and there were a few holes once the closure was complete. I used 3-0 Vicryl suture and repaired these holes. We then retrieved the suture needles. All looked good. We removed the instruments and evacuated CO2. The trocars were removed. The wounds were closed with subcuticular 4-0 Monocryl skin suture. The wounds were dressed with Exofin surgical adhesive. Patient was then awakened and taken to recovery in good condition. Sponge needle counts were correct x2. Implants Large, 16 x 10 cm, left mid 3DMax mesh Estimated Blood Loss -20 Drains No Packing No Pathology None sent Complications None Condition Stable Disposition PACU [facility] Billing Surgery - Charge Forward: Surgery Billing (Robotic laparoscopic repair left inguinal hernia with mesh)
== END 2024-09-17 16:45 | disposition home or self-care (01) ==
PROVIDERS: PCP Physician Assistant Medical; Visit Provider Surgery
PROC: 8E0Y4CZ Robotic Assisted Procedure of Lower Extremity, Percutaneous Endoscopic Approach (ICD-10-PCS; CPT 49650; principal; 2024-09-17 12:00)
DX: K40.90 Unilateral inguinal hernia, without obstruction or gangrene, not specified as recurrent (principal); K66.0 Peritoneal adhesions (postprocedural) (postinfection)
CPT/HCPCS: 49650; S2900; A9270; C1781; J0690; J1100; J1200; J1885; J2405; J2704; J3010; J7120

== ENCOUNTER 2024-09-29 13:49 | Outpatient (RCR) | payer OTHER, SELFPAY ==
--- NOTE | 2024-09-29 16:21 | PTOPEVAL1 ---
Assessment and note entered by Kemi Ramey, PT Evaluation Information Assessment Status Evaluation Diagnosis Myalgia (M79.18), Low back pain unspec (M54.5) ICD-10 Condition Codes (PT) Pain in low back M54.50,Radiculopathy, lumbar region M54.16,Radiculopathy, sacral and sacrococcygeal region M54.18,Weakness R53.1 Onset ~ 1 year Subjective Information Laying on right side deep pain grabbing and will have to lay on back or other side. Will wake her up at night. Just over the last couple days getting a catch in the front of the right hip Feels like could be gluteal tendinopathy wiht menopause changes. Pain with pushing on the area in the gluteals will have pain down to knee through hamstrings Muscle relaxer will give relief about 6 hours. Reports saw neurologist was told could get shots but did not have chronic enough or severe enough deficits to justify surgery at that time. Did not want to have shots, and is not in back pain all the time. Reports not taking prescription medication, only 800 mg Ibuprofen when is so bad she can't function. 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 Reported Pain Level Pain Score 0,0,3: Self Report Assessment PT Clinical Summary Pt presents with complaints of farrah hip pain in gluteal area, also pain deep in right hip joint, and pain that can at times radiate down posterior thighs. Pt his significant lumbar arthritic issues including multiple layers of bulging discs, foraminal stenosis, central canal stenosis, and facet arthritis at differing degrees. History of multiple abdominal surgeries with recent one ~ 2 weeks ago. She shoes abnormal pelvic alignment, severely decreased strength in lumbopelvic stabilizer muscles, and decreased hamstring flexibility. Pt will benefit from physical therapy to address deficits, reduce pain, and allow improved overall quality of function. Plan of Care Interventions Electrical Stimulation,Hot Pack/Cold Pack,Manual Therapy,Mechanical Traction,Neuro Re-education, Therapeutic Activities,Therapeutic Exercise,Self- Care/Home Management,Ultrasound,Other Other Interventions bracing, taping PT Services Indicated Yes Treatment Frequency and 1-2x weekly x 10 visits Duration These treatments will address the objective and functional deficits as defined above. The patient will be advanced safely and appropriately in order for the patient to progress towards his/her prior level of function. Additional exercises will be introduced and as well as a comprehensive home exercise program upon discharge, if needed, ?to ensure carryover of functional gains achieved in the clinic. This treatment plan has been reviewed and agreement upon by the patient.
--- NOTE | 2024-09-29 16:21 | OPREHPOC ---
Outpatient Therapy Plan of Care This is a Multidisciplinary Plan of Care that may contain components documented by all disciplines (PT, OT, and ST.) PT Problem 1 PT Problem #1 Knowledge Deficit PT Goal 1 Goal / Goal Update Pt will be independent in HEP Pt will verbalize understanding of diagnosis and prognosis Target Visit 10 PT Problem 2 PT Problem #2 Pain PT Goal 1 Goal / Goal Update Pt will report greatest pain level at 3/10 or less to improve ADLs and activities Target Visit 5 PT Goal 2 Goal / Goal Update Pt will report resolution of pain to return to PLOF Target Visit 10 PT Problem 3 PT Problem #3 Impaired Strength PT Goal 1 Goal / Goal Update Pt will demonstrate BLE strength 4/5 for improved lumbopelvic stability PT Goal 2 Goal / Goal Update Pt will demonstrate TRAM strength of 4/5 for improved lumbopelvic stability
--- NOTE | 2024-10-05 13:23 | PCPTNOTE ---
Admitting Provider: Attending Provider: Ina Elizalde PA-C Patient:Raquel Mccarty Date of :1960 Patient?s initial visit was on 09/29/2024 14:00, which she was evaluated and plan of care established. Today she called and cancelled her appts stating she could not attend due to her financial situation. Thus patient is being discharged per request. The goals have not been met.
== END 2024-10-14 14:48 | disposition home or self-care (01) ==
LOC: ANHHIPT 13:49
PROVIDERS: PCP Physician Assistant Medical; Visit Provider Physician Assistant Medical
DX: M54.50 Low back pain, unspecified (principal); M79.18 Myalgia, other site
CPT/HCPCS: 97162; 97530

== ENCOUNTER 2025-01-20 13:34 | Outpatient (CLI) | payer OTHER, SELFPAY ==
--- NOTE | 2025-02-01 13:02 | P.PCNPFT_ITS ---
PFT Procedure Performed PFT Procedure Performed Spirometry with Pre/Post Bronchodilator Plethysmography (Lung Vol) Diffusing Cap (DLCO) Flow Vol Loop PFT Interpretation DOS: 01/20/2025 REQUESTING: Bandra Enciso APRN REASON FOR TESTING: dyspnea PULMONARY FUNCTION TESTS Results are reliable and reproducible. Repeatability of spirometry FEV1 maneuver pre and post bronchodilator is Grade A. Jerome: GLI 2012 reference equations were used. Spirometry: The pre-bronchodilator FEV1 is 2.57 L, 99%, normal. The pre- bronchodilator FVC is 3.31 L, 99%, normal. The FEV1/FVC ratio is 78%, normal. After bronchodilator, the FEV1 is 2.63 L, 102%, +2%. After bronchodilator, the FVC is 3.27 L, 98%, -1%. The FEV1/FVC ratio is 81%, normal. Lung volumes: The total lung capacity is 4.74 L, 86%, normal. The functional residual capacity is 2.66 L, 85%, normal. Residual volume is 1.44 L, 64%, reduced. RV/TLC is 30%, normal. Airway resistance is increased. Diffusion: DLCO is 18.6, 83%, normal. The DLCO/VA is 4.28, 101%, normal. Flow volume loop: The flow volume loop is normal. IMPRESSION: This study shows normal spirometry without response to bronchodilator, normal lung volumes and normal diffusion. Lack of response to bronchodilator should not preclude use if clinically indicated. No prior studies to compare. Cammy Olvera MD
== END 2025-01-20 13:35 | disposition home or self-care (01) ==
PROVIDERS: PCP Physician Assistant Medical; Visit Provider Nurse Practitioner Family
DX: I26.99 Other pulmonary embolism without acute cor pulmonale (principal); I82.412 Acute embolism and thrombosis of left femoral vein; R06.09 Other forms of dyspnea
CPT/HCPCS: 94060; 94726; 94729